=== PATIENT | male | born 1945 | race Caucasian/White ===

== ENCOUNTER 2025-04-04 19:58 | Inpatient (IN) | payer MEDICARE, OTHER, SELFPAY ==
[2025-04-04] VITALS (10 sets, daily range): BP systolic 149–175; BP diastolic 70–98; BMI 27.3; BMI 25.2
[2025-04-04 12:33] LABS: ALT (SGPT) 72 U/L (0-50); AST (SGOT) 58 U/L (17-59); Albumin 3.9 g/dl (3.5-5.0); Alkaline Phosphatase 85 U/L (38-126); Blood Urea Nitrogen 50 mg/dl (9-20); Calcium 8.8 mg/dl (8.4-10.2); Carbon Dioxide 13 mmol/L (22-30); Chloride 119 mmol/L (98-107); Glucose 69 mg/dl (70-99); Potassium 5.1 mmol/L (3.5-5.1); Sodium 142 mmol/L (135-145); Total Protein 6.6 g/dl (6.3-8.2); eGFR 31.82
[2025-04-04 12:34] LABS: Hematocrit 22.2 % (39.0-52.0); Hemoglobin 7.2 g/dL (13.0-18.0); Mean Corp Hgb Conc. 32.4 g/dL (33.0-37.0); Mean Corpuscular Volume 89.5 fL (80.0-94.0); Nucleated Red Blood Cells % 0 % (-); Red Cell Dist. Width 14.1 % (11.5-14.5)
[2025-04-04 13:18] LABS: Platelet Count 139 10^3/uL (130-400)
--- NOTE | 2025-04-04 17:17 | ED.GENMED ---
History of Present Illness
General
Chief Complaint: Swelling
Time Seen by Provider: 04/04/25 16:25
History of Present Illness
History of Present Illness:
79-year-old male with history of insulin-dependent diabetes, chronic renal failure, hypertension, and hyperlipidemia presents to the emergency department for evaluation of gradual worsening of edema particularly of the lower extremities extending to
over the abdomen. States that this been going on for approximately 6 months, he was admitted to [facility] in February but he is not aware of any of the findings from this. He does note that he was discharged from that hospital stay on
oral iron supplements which he continues to take. He reports exertional dyspnea and chest tightness. Denies any associated fevers or chills recently. Denies knowledge of any weight gain.
Past History
Past History
ED Past Medical History: GERD, HTN, Hypercholesterolemia, NIDDM and Other (Diverticulitis)
ED Past Surgical History: Bowel resection and Cholecystectomy
Social History
Tobacco: Non-smoker
Personal:
Review of Systems
Review of Systems
Allergies reviewed?: Yes
All Other Systems: ROS reviewed and negative except as documented in HPI and ROS
Phy Exam
Physical Exam
Physical Exam:
GEN: Well appearing, NAD, WDWN
Eyes: PERRLA, EOMs intact, no scleral icterus
HENT: NCAT, oral mucosa moist
Lungs: CTAB, no wheezes, rales, rhonchi, normal chest wall excursion
Cardiac: RRR, no M/R/G, no peripheral edema. Radial pulses 2+ bilat
Abdomen: S, NT, ND, NABS, no masses or hepatosplenomegaly
Neuro: AO x 3
MSK: No gross deformity or ecchymosis. Severe bilateral lower extremity edema left greater than right
Skin: No rashes, petechiae. Normal color, no pallor or jaundice.
Psych: Calm, cooperative, proper hygiene
Scores
Heart Failure Risk
Heart Failure Risk Score: Yes
History of Stroke or TIA: No
History of intubation for respiratory distress: No
Heart rate on ED arrival >/= 110: Yes
SaO2 <90% on arrival on room air: No
HR >/=110 during 3min walk test (or too ill to perform test): Yes
ECG has acute ischemic changes: Yes
Urea >/=12mmol/L (BUN 33.6mg/dL): Yes
Serum CO2>/=35mmol/L: No
Troponin I or T elevated to MN Level (0.4mg/dL): Yes
NT-proBNP >/=5,000ng/L (5,000pg/ml): Yes
HF Risk Score: 8
Admission Status: VERY HIGH RISK 81.2% Consider admission to hospital
Course
Orders/Labs/Results
Orders:
Orders
04/04/25 12:01
Complete Blood Count/With Diff Urgent
Comprehensive Metabolic Panel Urgent
04/04/25 17:15
Venous Doppler Lwr Ext Left [US Periph Venous LOWER Ext LT] Urgent
Comment:
Reason For Exam: LLE edema
04/04/25 17:16
Electrocardiogram (*1) Urgent
Reason for Study: Chest Pain
EKG- Treatment ONCE
CR Chest - 2 Views Urgent
Comment:
Reason For Exam: SOB
04/04/25 17:18
Type+Screen Urgent
BBK Wristband Number:
NT-proBNP Urgent
Troponin I Urgent
04/04/25 18:19
Blood Bank Products [* Blood Bank Products] Urgent
Blood Bank Products: *Packed RBC Leuko(PRBC's)
Quantity: 1
Transfuse Today: Yes
Reason: Anemia
Furosemide [Lasix] 40 mg IV ONCE ONE
Abnormal Lab Results
04/04/25 04/04/25
12:01 17:18
RBC 2.48 L 10^6/uL
(4.70-6.10)
Hgb 7.2 L g/dL
(13.0-18.0)
Hct 22.2 L %
(39.0-52.0)
MCHC 32.4 L g/dL
(33.0-37.0)
MPV 11.4 H fL
(7.4-10.4)
Absolute Lymphs (auto) 0.6 L 10^3/uL
(1.2-3.4)
Neutrophils % 80.9 H %
(42.2-75.2)
Lymphocytes % 9.4 L %
(20.5-51.1)
Chloride 119 H mmol/L
(98-107)
Carbon Dioxide 13 L* mmol/L
(22-30)
BUN 50 H mg/dl
(9-20)
Creatinine 2.1 H mg/dL
(0.7-1.3)
Glucose 69 L mg/dl
(70-99)
ALT 72 H U/L
(0-50)
Troponin I 0.041 H* ng/ml
04/04/25 12:01
04/04/25 12:01
Vital Signs
Initial and Last Documented VS:
Initial Vital Signs
Temp Pulse Resp BP Pulse Ox
97.4 F 86 16 165/74 99
04/04/25 11:48 04/04/25 11:48 04/04/25 11:48 04/04/25 11:48 04/04/25 11:48
Last Documented Vital Signs
Temp Pulse Resp BP Pulse Ox
97.4 F 114 17 175/72 99
04/04/25 11:48 04/04/25 17:53 04/04/25 17:53 04/04/25 17:52 04/04/25 17:53
MDM/Problems Addressed
MDM/Problems Addressed:
79-year-old male presents with leg swelling as well as dyspnea on exertion. He is found to be in acute onset CHF evidenced by massive diffuse edema/anasarca, pulmonary edema on chest x-ray, and elevated proBNP/troponin. Anemia is also identified
of uncertain chronicity, I was unable to receive records from [facility] regarding his recent discharge summary and the patient has no access to these records at this time. He is not on anticoagulants. He does take oral iron and
thus stool Hemoccult is not valid. Will admit for further evaluation and management.
Comment
Comment:
EKG independently interpreted by me shows normal sinus rhythm at a rate of [address]ressions
*Pulse Oximetry
SaO2: 99
Oxygen Mode of Delivery: Room air
Patient hypoxic: no
*Critical Care Note
Total Time (30-74mins, 75-104mins- exclusive of procedures): 40 minutes
comment:
Critical care time: 40-minute
Critical care time was exclusive of: Separately billable procedures, treating other patients, and teaching time
Critical care was necessary to treat or prevent imminent or life-threatening deterioration of the following conditions: Symptomatic anemia/CHF
Critical care time spent personally by me on the following activities:
[x] Review of old charts
[x] Obtaining history from patient or surrogate
[x] Ordering and review of the laboratory studies
[x] Ordering and review of radiographic studies
[x] Ordering and performing treatments and interventions
[x] Patient patient's response to treatment
[x] Development of treatment plan with patient or surrogate
ED Attending Note
-
Portions of this chart may have been created with voice recognition software.� Occasional wrong word or��sound alike� substitutions may have occurred due to the inherent limitations of voice recognition software.
Discharge Plan
Departure
Patient Disposition: Admit
Date of Disposition: 04/04/25
Time of Disposition: 18:20
Admit to: Telemetry
Presentation/result/management discussed w/ accepting MD/DO: Hospitalist
Discharge Problem:
Acute CHF, Cardiorenal syndrome, Symptomatic anemia
Prescriptions:
No Action
sertraline 100 mg Tablet
100 mg PO DAILY
tamsulosin [Flomax] 0.4 mg Capsule
0.4 mg PO HS
amlodipine [Norvasc] 10 mg Tablet
10 mg PO DAILY
pantoprazole [Protonix] 40 mg Tablet,Delayed Release (Dr/Ec)
40 mg PO DAILY
simvastatin [Zocor] 20 mg Tablet
20 mg PO QPM
hydralazine 50 mg Tablet
50 mg PO BID
gabapentin 100 mg Capsule
100 mg PO TID
finasteride 5 mg Tablet
5 mg PO DAILY
valsartan 160 mg Tablet
160 mg PO DAILY
Novolin R FlexPen 100 unit/mL (3 mL) Insulin Pen
10 sliding scale dose SC AC
metoprolol tartrate 25 mg Tablet
25 mg PO BID
insulin glargine [Lantus Solostar U-100 Insulin] 100 unit/mL (3 mL) Insulin Pen
30 unit SC HS
Referrals:
Bailey Arndt DO [Family Provider, Internal Medicine]
Interventions
Interventions:
*Risk Screen - Suicide Last Done: 04/04/25 18:00
*General Assessment Last Done: 04/04/25 18:00
*Neglect/Abuse Screening Last Done: 04/04/25 18:00
*ED- Fall Risk Assessment Last Done: 04/04/25 18:00
*ED COVID-19 Vaccine History Last Done: 04/04/25 18:00
ED- Pulmonary Assessment Last Done: 04/04/25 18:10
ED-Skin Assessment Last Done: 04/04/25 18:00
Discharge Date and Time
Print Language: GERMAN
[2025-04-04 17:59] LABS: Troponin I 0.041 ng/ml
--- NOTE | 2025-04-04 18:27 | HPS.HSE ---
Family Physician
-
Family Physician: Bailey Arndt, DO
Chief Complaint
-
Swelling bilateral legs up to buttocks
History of Present Illness
79-year-old male from his PCP office was sent to ER for evaluation of his progressive edema which started about 6 months ago to his feet but over the past month has progressed to the feet up bilateral legs to buttocks. He was seen by his PCP in the
office today who noted that he looked pale along with increased edema and referred him to the ER for evaluation. Patient states he had recent admission February 19 to at [facility] at that time he had uncontrolled hypertension he was placed on
4 blood pressure medications. 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 Patient reports shortness of breath with activity. He denies headache, blurred vision, chest pain, palpitations,
cough, abdominal pain, nausea, vomiting, diarrhea, urinary symptoms, black stools, hematuria.
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
Medical History
Past Medical History
Past Medical History: Reports Other
Additional Past Medical History:
hypertension
DM 2
neuropathy
cKd 3B
HLD
GERD,
diverticulitis status post colon resection
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
BPH
Past Surgical History: Reports Other
Additional Past Surgical History:
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
Social History
Tobacco: Non-smoker
Alcohol: None
Drug: None
Personal:
Living: With Family ( [place])
Employment: Retired
Family History
Family History: Not pertinent
Allergies / Home Medications
Allergies reflects when Allergies were last updated in [employer].
Home Medications with original date entered in [employer]
Allergy/Medication List:
Allergies
Allergy/AdvReac Type Severity Reaction Status Date / Time
iodine Allergy Hives Verified 04/04/25 11:48
Home Medications
amlodipine 10 mg tablet (Norvasc) 10 mg PO DAILY 04/04/25
finasteride 5 mg tablet 5 mg PO DAILY 04/04/25
gabapentin 100 mg capsule 100 mg PO TID 04/04/25
hydralazine 50 mg tablet 50 mg PO BID 04/04/25
insulin glargine 100 unit/mL (3 mL) subcutaneous pen (Lantus Solostar U-100 Insulin) 30 unit SC HS 04/04/25
insulin regular human 100 unit/mL (3 mL) subcutaneous pen (Novolin R FlexPen) 10 sliding scale dose SC AC 04/04/25
metoprolol tartrate 25 mg tablet 25 mg PO BID 04/04/25
pantoprazole 40 mg tablet,delayed release (Protonix) 40 mg PO DAILY 04/04/25
sertraline 100 mg tablet 100 mg PO DAILY 04/04/25
simvastatin 20 mg tablet (Zocor) 20 mg PO QPM 04/04/25
tamsulosin 0.4 mg capsule (Flomax) 0.4 mg PO HS 04/04/25
valsartan 160 mg tablet 160 mg PO DAILY 04/04/25
Review of Systems
-
History Source: Patient
A 12 point ROS was completed and negative except as noted: Yes
Constitutional: Reports Fatigue; Denies Fever or Chills
EENT: Denies Sore Throat or Runny Nose
Respiratory: Reports Trouble Breathing (BAKER); Denies Cough
Cardiac: Denies Chest Pain, Diaphoresis, Palpitations or Syncope
Abdomen/GI: Denies Abdominal Pain, Nausea, Vomiting, Diarrhea, Constipated or Bloody Stools
: Denies Dysuria, Frequency, Flank Pain or Incontinence
Musculoskeletal: Reports Edema (Feet to buttocks +2); Denies Joint Pain
Skin: Denies Itching or Rash
Neurological: Denies Dizzy, Headache or Weakness
Endocrine: Reports No Symptoms
Hematologic/Lymphatic: Reports No Symptoms
Psych: Reports Calm
Physical Exam
Vital Signs
Vital Signs
Temp Pulse Resp BP Pulse Ox
97.4 F 114 17 175/72 99
04/04/25 11:48 04/04/25 17:53 04/04/25 17:53 04/04/25 17:52 04/04/25 17:53
Physical Exam
General: Comfortable and Conversant; No Pain, Fever or Chills
HEENT: NormoCephalic, Moist mucous membranes, PERRLA, [place] Conjunctivae and No Ptosis
Respiratory: Clear; No Wheezes, Rales or Rhonchi
Cardiac: S1/S2, Regular Rhythm and Peripheral Edema (+2 feet to buttocks); No Murmur, Rub or Gallop
Breast: Deferred by me
GI: Soft, Non Tender, Non Distended, Normal Bowel Sounds and No Hepatosplenomegaly
Rectal: Deferred by Provider
Musculoskeletal: No Clubbing, No Cyanosis, Edema, Left Lower Extremity (+2 feet to buttocks) and Edema, Right Lower Extremity (+2 feet to buttocks); No Edema, Left Upper Extremity or Edema, Right Upper Extremity
Skin: Warm and Dry; No Rash or Jaundice
Neuro: AO x 3, No Motor Deficits, Nonfocal/grossly intact, Cranial Nerves Intact and No Sensory Deficits; No Slurred Speech, Facial Droop, Tremors or Sedated
Psych: Calm
Laboratory Results
-
04/04/25 12:01
04/04/25 12:01
Laboratory Results
Total Bilirubin 0.5 mg/dl (0.2-1.3) 04/04/25 12:01
AST 58 U/L (17-59) 04/04/25 12:01
ALT 72 U/L (0-50) H 04/04/25 12:01
Alkaline Phosphatase 85 U/L (38-126) 04/04/25 12:01
Troponin I 0.041 ng/ml H* 04/04/25 17:18
Impression/Plan
-
Impression/plan:
Admit to telemetry
#Acute CHF�nohx of
BNP 9580
I/O, daily weights
-IV Lasix given in ER
- Check 2D echo
- Consult CBC cardiology
#Symptomatic normocytic anemia/ possible dilutional also
#History of iron deficiency anemia
Hgb 7.2, MCV 89.5
Check iron panel, B12, folate
Type and screen
-Transfuse 1 unit PRBC with Lasix 20 units after [facility] through unit
-Iron 42, percent sat 10 will give Ferrlecit infusions starting tomorrow
#KODI on CKD 3B
#History of partial nephrectomy right sided 2007 due to right kidney mass
Creat 2.1/bun 50 prior baseline 1.3 in 2018
(Patient states his creatinine numbers have been elevated on recent admit February 19-)
Obtain medical records including labs from Dr. Garcia [facility] [phone]
-Consult nephro
#Acute hypoglycemia due to ckd and insulin
Blood sugar 69
-We will give D50 12.5 mg now, Accu-Cheks with SSI, check HgbA1c
Hold Lantus 30 units SQ at bedtime, NovoLog or 10 units with meals
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
Troponin 0.041, will trend
#HTN history uncontrolled
BP meds just prescribed February 19 to at [facility]
Continue hydralazine 50 mg p.o. twice daily, Toprol tartrate 25 mg p.o. twice daily with hold parameters,
HOLD valsartan 160 mg daily, amlodipine 10 mg daily
#HLD
Continue Zocor 20 mg every afternoon
#GERD
Continue Protonix 40 mg daily
Other PMH:
Diverticulitis status post colon resection
DVT prophylaxis
Subcu heparin
Full code
--- NOTE | 2025-04-04 18:33 | W.PN.UPDATE ---
Update Note
Progress Note Update
This note serves as an addendum to the H&P by rotating equipment specialist AGUSTÍN�
Samantha New
HPI�
79M HX CKD3b/4, ACDz , IDDMT2 , HTN, HLD seen at ER:
- evaluation of gradual worsening of edema particularly of the lower extremities extending to over the abdomen.
- for approximately 6 months
- he was admitted to [facility] in February but he is not aware of any of the findings from this.
- He does note that he was discharged from that hospital stay on oral iron supplements which he continues to take.
- He reports exertional dyspnea and chest tightness.
ROS
Denies any associated fevers or chills recently. Denies knowledge of any
Temp Pulse Resp BP Pulse Ox
97.4 F 114 17 175/72 99
04/04/25 11:48 04/04/25 17:53 04/04/25 17:53 04/04/25 17:52 04/04/25 17:53
PE
Gen: NAD, non toxic
HEENT: pale conjunctiva
Neck: Full EJD
Lungs: symmetric AE
Cor: RRR Loud HS suspect hyperdynamic circulation due to anemia
Abdomen:�soft benign
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
MS:b/l Elida pitting edema up to knees
Psych: Nl mood and afect
Relevant Data�
04/03/18 04/03/18 04/04/25
Hgb 13.3 7.2 L
MCV 89.5
Plt Count 139
Sodium 142
Chloride 119 H
Carbon Dioxide 13 L*
BUN 50 H
Creatinine 1.3 2.1 H
Glomerular Filtr Rate 54.6
eGFR 31.82
Troponin I 0.041
Prt-[id number] Pept 9580
07/03/10 TTE
1. Normal echocardiogram.
2. No prior study for comparison.
CXR
- Pulmonary vascularity at least top normal.
- Suspected small bilateral pleural effusions.
ASSESSMENT & PLAN
Cobb with b/l Elida edema
Symptomatic multifactorial origins hypervolemic state
DDX: decompensated CHF NOS + severe anemia + possible nephrotic syndrome + CKD3b/4 of diabetic nephropathy ?
- Significant microalbuminuria > 57 - eval for nephrotic syndrome - diabetic nephropathy ?
- IV diuresis
- Renal and Cardio consult
Acute CHF NOS DDX: Chr HFpEF +/_ High output HF due to anemia
- IV Lasix 40 daily
- ECHO in AM
- daily wt, IOs
- daily BMP
- CBC Card consulted
Anemia - severe, normocytic
Multifactorial : Dilutional element of current Hgb due to hypervolemia + Anemia of chronic dz +/_ acute component like GIB loss
- suspect underlying CKD
- HX Fe def anemia
- check stool for HoB
- pending Ferritin
- T & S and Blood consented and scanned
- agree with 1 unit of PRBCs - should give IV Lasix 20mg half way thru 1 unit of PRBC
Underlying CKD3b/4 per patient
NAG MA 10
severe hypocarbia
- hold Valsartan
- await Renal evaluation
Poorly controlled HTN suspect element of volume mediated plus MDR essential HTN
Essential HTN
- on BRUSHER amlodipine, Hydralazine and Metoprolol tart
Hypoglycemia due to lower GFR causing relatively prolonged half life of insulin
IrDMT2
- Hold Novolin R
- Hold Lantus
- ISS low
HLD
- controlled
- on Simvastatin + Fenofibrate
BPH
- Finasteride
- BRUSHER tamsulosin
DVT Px: SQH
Full code
IP TLM
[2025-04-04 18:46] LABS: Glucose - Point of Care 84 mg/dl (70-99)
[2025-04-04 18:51] LABS: Iron 42 ug/dl (49-181)
[2025-04-04 19:01] LABS: Total Iron Binding Capacity 391 ug/dl (261-462)
[2025-04-04 19:27] LABS: Ferritin 24.5 ng/ml (17.9-464.0)
[2025-04-04] MEDS: LASIX 40 MG IV (19:43)
[2025-04-04] MEDS: DEXTROSE 50% SYRINGE 12.5 GRAMS IV (19:43)
[2025-04-04 19:58] LABS: Folate 7.1 ng/ml (2.76-20); Vitamin B12 723 pg/ml (239-931)
--- NOTE | 2025-04-04 20:01 | PTCARENOTE ---
Pt aaox3, cooperative. 40 iv lasix given prior to PRBCs, report given to 4east RN to give additional 20 mg iv lasix detention through blood transfusion. vss. accucheck done.
[2025-04-04 20:03] LABS: Glucose - Point of Care 133 mg/dl (70-99)
[2025-04-04 21:29] LABS: Urine Character Clear (Clear)
[2025-04-04 21:38] LABS: Urine Squamous Cell 0-2 /LPF (Few)
[2025-04-04 21:39] LABS: Urine White Cell 0-2 /HPF (0-5)
[2025-04-04] MEDS: HEPARIN 5000 UNITS SC (22:24)
[2025-04-04] MEDS: LIPITOR 10 MG PO (22:26)
[2025-04-04] MEDS: LOPRESSOR 25 MG PO (22:26)
[2025-04-04] MEDS: APRESOLINE 50 MG PO (22:26)
[2025-04-04] MEDS: LASIX 20 MG IV (22:26)
[2025-04-04 23:29] LABS: Troponin I 0.051 ng/ml
[2025-04-05] VITALS (8 sets, daily range): BP systolic 135–172; BP diastolic 68–81; BMI 24.5
[2025-04-05 03:51] LABS: Glucose - Point of Care 128 mg/dl (70-99)
[2025-04-05 07:03] LABS: Glucose - Point of Care 131 mg/dl (70-99)
[2025-04-05] MEDS: NOVOLOG FLEXPEN-LOW RESISTANCE SC (07:17)
[2025-04-05] MEDS: APRESOLINE 50 MG PO ×2 (07:34→19:38)
[2025-04-05] MEDS: PROTONIX 40 MG PO (07:34)
[2025-04-05] MEDS: LOPRESSOR 25 MG PO (07:34)
[2025-04-05] MEDS: LASIX 40 MG IV ×2 (07:35→17:09)
[2025-04-05] MEDS: HEPARIN 5000 UNITS SC ×2 (07:35→21:06)
--- NOTE | 2025-04-05 07:46 | CON.CAR ---
Addendum entered and electronically signed by Tre Angel MD 04/05/25 11:45:
I saw and examined the patient.
The EPIDEMIOLOGY INTERN's note was reviewed and I agree with the note.
Comment:
79-year-old male with hypertension, hypertriglyceridemia, type 2 diabetes mellitus, CKD with prior partial right nephrectomy (2006), and incomplete right bundle branch block who presented with worsening edema. He reports that edema started a few
months ago and has been getting worse. Now up to his thighs and low back. Saw his PCP yesterday who recommended ER evaluation. He also reports he has had chest burning over the past few months which radiates to his jaw and left arm. Mostly
occurs at night when he gets up to go to the bathroom but can also occur during the day. Not always with exertion. Symptoms have been becoming more frequent. He has never had any kind of coronary evaluation or stress test.
Physical exam: RRR, no murmurs, faint bibasilar crackles, 3+ pitting lower extremity edema up to his hips
Labs notable for hemoglobin 7.2, creatinine 2.0, A1c 6.4, troponin 0.041 -> 0.073
TTE 04/05/2025: LVEF 50-55%, small area of hypokinesis in the apical inferior/inferoseptal wall, stage II DD, biatrial enlargement, mod TR with PASP 51 mmHg, pleural effusion
HFpEF: New diagnosis this admission. Lots of edema and unknown dry weight. Continue twice daily IV diuresis. Nephrology consulted. Will get their thoughts on SGLT2 inhibitor and MRA.
Chest discomfort: Could be an anginal equivalent. Once he is adequately diuresed, we should consider stress test inpatient versus outpatient.
Hypertension: Stop amlodipine to allow for GDMT. Switch metoprolol to carvedilol. Continue hydralazine.
Anemia: Workup per primary team.
Original Note:
Consultation
Consultation Request
Date/Time Consultation Requested: 04/04/2025 19:00
Date/Time Consultation Performed: 04/05/2025 07:45
Requesting Provider: ROSARIO Nuñez
Performing Provider: ROSARIO Mcgovern for Dr. Angel
Reason for Consultation: Acute heart failure
Medical History
-
Chief Complaint: Worsening edema
History of Present Illness:
Reed Duque is a 79-year-old male with hypertension, hypertriglyceridemia, type 2 diabetes mellitus, CKD with prior partial right nephrectomy (2006), diverticulitis status post colon resection, anemia of chronic disease, and incomplete right bundle
branch block who presented with worsening edema. He reports his feet were swollen when he went to [facility] last month. Since his admission and then discharged home his edema has spread up to his thighs. He denies shortness of breath, chest pain, and
dizziness. He appears volume overloaded on exam.
Past Medical History
Past Medical History: HTN, Hypercholesterolemia, IDDM, Renal Failure (CKD) and Other (iRBBB, anemia of chronic disease)
Past Surgical History: Bowel Resection (1987), Cholecystectomy and Urological (Right partial nephrectomy)
Social History
Tobacco: Non-Smoker
Alcohol: None
Personal:
Living: With Family
Employment: Retired
Family History
Family History: Reviewed & Not Pertinent
Allergies / Home Medications
Allergy/AdvReac Type Severity Reaction Status Date / Time
iodine Allergy Hives Verified 04/04/25 11:48
�Medication �Instructions �Recorded �Confirmed �Type
amlodipine 10 mg tablet (Norvasc) 10 mg PO DAILY 04/04/25 04/04/25 History
finasteride 5 mg tablet 5 mg PO DAILY 04/04/25 04/04/25 History
gabapentin 100 mg capsule 100 mg PO TID 04/04/25 04/04/25 History
hydralazine 50 mg tablet 50 mg PO BID 04/04/25 04/04/25 History
insulin glargine 100 unit/mL (3 30 unit SC HS 04/04/25 04/04/25 History
mL) subcutaneous pen (Lantus
Solostar U-100 Insulin)
insulin regular human 100 unit/mL 10 sliding scale dose SC AC 04/04/25 04/04/25 History
(3 mL) subcutaneous pen (Novolin R
FlexPen)
metoprolol tartrate 25 mg tablet 25 mg PO BID 04/04/25 04/04/25 History
pantoprazole 40 mg tablet,delayed 40 mg PO DAILY 04/04/25 04/04/25 History
release (Protonix)
sertraline 100 mg tablet 100 mg PO DAILY 04/04/25 04/04/25 History
simvastatin 20 mg tablet (Zocor) 20 mg PO QPM 04/04/25 04/04/25 History
tamsulosin 0.4 mg capsule (Flomax) 0.4 mg PO HS 04/04/25 04/04/25 History
valsartan 160 mg tablet 160 mg PO DAILY 04/04/25 04/04/25 History
Review of Systems
-
History Source: Patient
All other systems: Negative unless noted
Constitutional: Fatigue
EENT: No Symptoms
Respiratory: No Symptoms
Cardiac: No Symptoms
Abdomen/GI: No Symptoms
: No Symptoms
Musculoskeletal: Edema
Skin: No Symptoms
Neurological: No Symptoms
Endocrine: No Symptoms
Hematologic/Lymphatic: No Symptoms
Physical Exam
Vital Signs
Temp Pulse Resp BP Pulse Ox
98 F 78 18 148/77 98
04/05/25 03:17 04/05/25 07:34 04/05/25 03:17 04/05/25 07:34 04/05/25 03:17
Lab Results
Troponin I 0.051 ng/ml H* 04/04/25 22:50
Pmw-I-Flunhvnmhfe Pept 9580 pg/ml 04/04/25 17:18
Physical Exam
General: Well Developed, Well Nourished and No Apparent Distress
HEENT: Normocephalic, Anicteric and Moist Mucous Membranes
Respiratory: Crackles and Non Labored Respirations
Cardiac: S1/S2, Regular Rhythm and Peripheral Edema
Breast: Deferred by me
GI: Soft, Non Tender, Non Distended and Normal Bowel Sounds
Rectal: Deferred by Provider
Genito-urinary: No Costovertebral Tender
Musculoskeletal: No Clubbing, No Cyanosis and Edema
Skin: Warm and Dry
Neuro: Awake and Alert
Hematologic/Lymphatic: No Lymphadenopathy
Psych: Calm
Impression / Plan
-
I/P: 79M with hypertension, hypertriglyceridemia, type 2 diabetes mellitus, CKD with prior partial right nephrectomy (2006), diverticulitis status post colon resection, anemia of chronic disease, and incomplete right bundle branch block who
presented with worsening edema.
Outpatient Parking Regulation Enforcement Officer: None
Heart failure, type unknown- acute, NEW, severe requiring hospitalization
- Diuresis with intravenous furosemide, as directed by nephrology, this requires intensive monitoring
- He would benefit from compression, significant pitting edema up to abdomen
- Defer SGLT2i initiation by nephrology
- Update echocardiogram
- Trend daily weight, I/O, and BMP with diuresis
- Heart failure education
Abnormal troponin, likely nonischemic myocardial injury in the setting of acute heart failure
- Chest pain-free
- EKG does not demonstrate acute ischemia
CKD Stage III, with proteinuria
- s/p partial right nephrectomy in the setting of mass 2006
- Creatinine 2.4 at [facility] last month
- Diuresis in the setting of CKD requires intensive monitoring
Hypertension, multidrug
- Amlodipine stopped, metoprolol tartrate stopped, start carvedilol
- Continue valsartan and hydralazine
Metabolic acidosis
- Slowly improving, presented with CO2 of 13
Hypertriglyceridemia
- Fasting lipid panel pending, he may require direct LDL
- Triglycerides over 500 in the past with an A1c ~7%
- His fenofibrate was stopped in the past due to renal function
Type II DM, controlled, Hgba1c 6.4%
Anemia, likely of chronic disease, per primary service
Incomplete right bundle branch block, chronic, seen in 2006
SUBJECTIVE:
As above
DATA:
Transthoracic echocardiogram, 02/21/2025 ([facility]):
EF 55 to 60%. Grade 2 DD.
Severely dilated LA. Normal RV chamber size and systolic function.
Mild mitral regurgitation. Dilated IVC, unable to estimate PASP due to small regurgitant jet across the tricuspid valve.
Data Reviewed
-
EKG: Report Reviewed by me
Radiology: Report Reviewed by me
Medical Tests (Nuc Med, Echo etc): Report Reviewed by me
Labs: Labs Reviewed by me
Old Records: Reviewed
[2025-04-05 07:53] LABS: Hematocrit 25.2 % (39.0-52.0); Hemoglobin 8.2 g/dL (13.0-18.0); Mean Corp Hgb Conc. 32.5 g/dL (33.0-37.0); Mean Corpuscular Volume 89.7 fL (80.0-94.0); Nucleated Red Blood Cells % 0 % (-); Platelet Count 142 10^3/uL (130-400); Red Cell Dist. Width 13.9 % (11.5-14.5)
--- NOTE | 2025-04-05 07:53 | W.PN.HOSP.TC ---
Today's Communication/Plan
-
For Echo today, review with report, with cardiology and Nephrology
Assessment / Plan
Assessment / Plan
I/O,
aily weights 76.8, 68.748, 66.877
#Fluid retention, likely due to congestive cardiac failure
BNP- 9580
-IV Lasix given in ER
- Check echo
- Consult cardiology
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
Troponin 0.041, will trend
Consider Acute coronary syndrome
-Troponin I 0.041-0.051, 0.073...
-Lipids TGA- Elevated 409, N LDL- 67, VLDL 70
-Aspirin, Clopidogrel,
-Continue statin
-Echo today
#Symptomatic normocytic anemia/ possible dilutional also
#History of iron deficiency anemia, on iron tablet
-Hgb 7.2, Ht- 25.2, MCV 89.5 on presentation
-Has been transfused 1 unit
Check iron panel, B12, folate
Stool for blood (Hx of diverticulosis)
-Transfused 1 unit PRBC with Lasix 20 units yesterday 04/04
-Current Hb 8.2, Ht 25.2, MCV 89.7
-Iron 42 (>49), %Sat 10 (>10)
-B12-723, Folate- N7.1
-Ferrlecit infusions
#KODI on CKD 3B (per medical)
#History of partial nephrectomy right sided 2006 due to right kidney mass
-Creat 2.1/bun 50 prior baseline 1.3 in 2018
-BUN/Cr41/2.0
-Consult Nephrology
(Patient states his creatinine numbers have been elevated on recent admit February 19-)
Obtain medical records including labs from Dr. Garcia [facility] [phone]
-Consult nephro
Non- insulin dependent diabetic mellitus
-Blood sugar 69 on presentation, likely due to CKD + Insulin dose
-Current SB 131, HgbA1c 6.4
-Reduce Lantus 30 units SQ at bedtime,
-Hold NovoLog 10 units with meals
-Do Low resistance sliding scale
#HTN history uncontrolled
-Current Bp 160/77, 82b
- On Amlodipine 10mg, Hydralazine 50mg, Carvedilol 1.25mg, Valsartan 160
Check for secondary cause
Abdominal USS
BP meds just prescribed February 19 to at [facility]
#HLD
Continue Simvastatin
#GERD
Continue Protonix 40 mg daily
Fenofinbrate
Neutrophilia
ANC 82.3 (80.9)
Repeat cbc with diff
NAGMA
?? Low co
13
DVT prophylaxis
Subcu heparin
HLD
- on Simvastatin + Fenofibrate
DM 2, Neuropathy, cKd 3B
On Gabapentin
#GERD,
-Protonix
BPH
- Finasteride
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
DVT Prophylaxis
Heparin drip
Full code
Anticipated Discharge: > 48 hours
Subjective/Interval History
-
Date of Service: April 05, 2025
Patient seen.
A 79 year old man with progressively worsening Bilateral lower extremity edema.
Also gave complains of reduced activity tolerance occasional left sided chest pain characterized as burning and radiates to the neck and left arm, relieved by rest, unsure of precipitant
No cough, orthopnea, PND
Increased urination, diuresing
No complains this morning.
Objective Data
-
Labs:
Laboratory Results
04/05/25
06:08
WBC 5.9
Hgb 8.2 L
Hct 25.2 L
Plt Count 142
Sodium Pending
Potassium Pending
Chloride Pending
Carbon Dioxide Pending
BUN Pending
Creatinine Pending
Glucose Pending
Calcium Pending
Total Bilirubin Pending
AST Pending
ALT Pending
Alkaline Phosphatase Pending
Vital Signs:
Vital Signs
Temp Pulse Resp BP Pulse Ox
98 F 78 18 148/77 98
04/05/25 03:17 04/05/25 07:34 04/05/25 03:17 04/05/25 07:34 04/05/25 03:17
I&O
04/04/25 04/05/25 04/06/25
06:59 06:59 06:59
Intake Total 730 / 730
Output Total 2325 / 2325
Balance -1595 / -1595
Review of Systems
-
History Source: Patient
Constitutional: Reports No Symptoms
EENT: Reports Other (Has chronic rhinitis with mucous production)
Respiratory: Reports No Symptoms
Cardiac: Reports Chest Pain
Abdomen/GI: Reports No Symptoms
Genitourinary: Reports No Symptoms
Musculoskeletal: Reports Edema (Bilateral pitting edema + sacral edema)
Skin: Reports Other (Wound dressing on the right, abrasion from a fall)
Neuro: Reports No Symptoms
Physical Exam
-
General: Well Developed, Well Nourished, No Apparent Distress and Comfortable
HEENT: Normocephalic
Respiratory: Clear to Auscultation
Cardiac: Regular Rhythm and S1/S2
GI: Soft, Nontender and Other (Full)
Musculoskeletal: Edema, Right Lower Extrem, Edema, Left Lower Extrem and Other (Sacral pitting )
Skin: Warm and Dry
Neuro: Awake, Alert and Oriented
Psych: Calm
Data Reviewed
-
Labs: Labs Reviewed by me, Discussed with Physician and Discussed with Patient
[2025-04-05 08:32] LABS: ALT (SGPT) 66 U/L (0-50); AST (SGOT) 49 U/L (17-59); Albumin 3.7 g/dl (3.5-5.0); Alkaline Phosphatase 103 U/L (38-126); Blood Urea Nitrogen 41 mg/dl (9-20); Calcium 9.0 mg/dl (8.4-10.2); Carbon Dioxide 15 mmol/L (22-30); Chloride 116 mmol/L (98-107); Estimated Creatinine Clearance 27 ml/min; Glucose 122 mg/dl (70-99); HDL Cholesterol 48 mg/dl; LDL Cholesterol, Calculated 67 mg/dl; Magnesium 1.8 mg/dl (1.6-2.3); Potassium 4.6 mmol/L (3.5-5.1); Sodium 141 mmol/L (135-145); Total Protein 6.2 g/dl (6.3-8.2); Very Low Density Lipoprotein 30 mg/dl (0-30); eGFR 33.74
[2025-04-05 08:35] LABS: Troponin I 0.073 ng/ml
[2025-04-05] MEDS: COREG PO (08:40)
[2025-04-05 09:00] LABS: Glycohemoglobin (HgbA1c) 6.4 % (4.0-5.6)
[2025-04-05 11:56] LABS: Glucose - Point of Care 299 mg/dl (70-99)
[2025-04-05 12:56] LABS: Troponin I 0.054 ng/ml
[2025-04-05] MEDS: FERRLECIT 110 MG IV (12:56)
[2025-04-05] MEDS: NOVOLOG FLEXPEN-LOW RESISTANCE 3 UNITS SC ×2 (13:17→17:08)
--- NOTE | 2025-04-05 13:25 | W.CON.NEPH ---
Consultation
-
Date/Time Consultation Requested: April 04, 2025 at 8
Date/Time Consultation Performed: April 05, 2025 10 AM
Requesting Provider: Haim Starks
Performing Provider: Dr. Vela
Reason for Consultation: Acute kidney injury on chronic kidney disease
Medical History
-
Chief Complaint: KODI
History of Present Illness:
79-year-old male from his PCP office was sent to ER for evaluation of his progressive edema which started about 6 months ago to his feet but over the past month has progressed to the feet up bilateral legs to buttocks. He was seen by his PCP in the
office today who noted that he looked pale along with increased edema and referred him to the ER for evaluation. Patient states he had recent admission February 19 to at [facility] at that time he had uncontrolled hypertension he was placed on
4 blood pressure medications.
Renal consult for acute kidney injury versus chronic anasarca admission creatinine 2.1
Past Medical History
hypertension
DM 2
neuropathy
cKd 3B
HLD
GERD,
diverticulitis status post colon resection
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
BPH
Social History
Tobacco: Non-Smoker
Alcohol: None
Family History
Mother was on dialysis towards her end of life
Allergies / Home Medications
Allergy/AdvReac Type Severity Reaction Status Date / Time
iodine Allergy Hives Verified 04/04/25 11:48
�Medication �Instructions �Recorded �Confirmed �Type
amlodipine 10 mg tablet (Norvasc) 10 mg PO DAILY Blood Pressure 04/04/25 04/04/25 History
finasteride 5 mg tablet 5 mg PO DAILY Urinary Issue 04/04/25 04/04/25 History
gabapentin 100 mg capsule 100 mg PO TID Neurological 04/04/25 04/04/25 History
Condition
hydralazine 50 mg tablet 50 mg PO BID Blood Pressure 04/04/25 04/04/25 History
insulin glargine 100 unit/mL (3 30 unit SC HS Diabetes 04/04/25 04/04/25 History
mL) subcutaneous pen (Lantus
Solostar U-100 Insulin)
insulin regular human 100 unit/mL 10 sliding scale dose SC AC 04/04/25 04/04/25 History
(3 mL) subcutaneous pen (Novolin R Diabetes
FlexPen)
metoprolol tartrate 25 mg tablet 25 mg PO BID Blood Pressure 04/04/25 04/04/25 History
pantoprazole 40 mg tablet,delayed 40 mg PO DAILY Gastrointestinal 04/04/25 04/04/25 History
release (Protonix) Issue
sertraline 100 mg tablet 100 mg PO DAILY Depression 04/04/25 04/04/25 History
simvastatin 20 mg tablet (Zocor) 20 mg PO QPM High Cholesterol 04/04/25 04/04/25 History
tamsulosin 0.4 mg capsule (Flomax) 0.4 mg PO HS Urinary Issue 04/04/25 04/04/25 History
valsartan 160 mg tablet 160 mg PO DAILY Blood Pressure 04/04/25 04/04/25 History
Review of Systems
-
Edema no shortness of breath
All other systems: Negative unless noted
Physical Exam
Vital Signs
Vital Signs
Temp Pulse Resp BP Pulse Ox
97.6 F 85 16 160/75 97
04/05/25 11:00 04/05/25 11:00 04/05/25 11:00 04/05/25 11:00 04/05/25 11:00
Lab Results
WBC 5.9 10^3/uL (4.8-10.8) 04/05/25 06:08
RBC 2.81 10^6/uL (4.70-6.10) L 04/05/25 06:08
Hgb 8.2 g/dL (13.0-18.0) L 04/05/25 06:08
Hct 25.2 % (39.0-52.0) L 04/05/25 06:08
Plt Count 142 10^3/uL (130-400) 04/05/25 06:08
Sodium 141 mmol/L (135-145) 04/05/25 06:08
Potassium 4.6 mmol/L (3.5-5.1) 04/05/25 06:08
Chloride 116 mmol/L (98-107) H 04/05/25 06:08
Carbon Dioxide 15 mmol/L (22-30) L 04/05/25 06:08
BUN 41 mg/dl (9-20) H 04/05/25 06:08
Creatinine 2.0 mg/dL (0.7-1.3) H 04/05/25 06:08
eGFR 33.74 04/05/25 06:08
Glucose 122 mg/dl (70-99) H 04/05/25 06:08
Calcium 9.0 mg/dl (8.4-10.2) 04/05/25 06:08
Oqn-P-Ttxdjcaolph Pept 9580 pg/ml 04/04/25 17:18
Albumin 3.7 g/dl (3.5-5.0) 04/05/25 06:08
Physical Exam
General no acute distress
HEENT no cephalic atraumatic extraocular muscle intact no scleral icterus no JVD neck supple
lungs clear to auscultation bilateral
heart regular S1-S2 positive
abdomen soft nontender positive bowel sounds
extremities 2 edema pulses present bilateral
Neurologically nonfocal alert and oriented x 3
Skin no lesions no abrasions no petechiae
Psych normal affect no bizarre behavior
Data Reviewed
-
Radiology: Image Personally Visualized and interpreted
Labs: Labs Reviewed by me and Discussed with Patient
Assessment/Plan
-
79-year-old male from his PCP office was sent to ER for evaluation of his progressive edema which started about 6 months ago to his feet but over the past month has progressed to the feet up bilateral legs to buttocks. He was seen by his PCP in the
office today who noted that he looked pale along with increased edema and referred him to the ER for evaluation. Patient states he had recent admission February 19 to at [facility] at that time he had uncontrolled hypertension he was placed on
4 blood pressure medications.
Renal consult for acute versus chronic kidney disease and anasarca . admission creatinine 2.1
Impression
Acute versus chronic kidney disease baseline (per records creatinine 1.4 2017 )admitting creatinine 2.1
Proteinuria 3+
hypertension
Anemia
DM 2 25+ years no diabetic retinopathy
neuropathy
cKd 3B
HLD
GERD,
diverticulitis status post colon resection
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
BPH
Plan
3+ albumin will quantify likely diabetic nephropathy
Serum albumin normal 3.7
Okay with SGLT2 inhibitor going forward would hold initiating now
Continue angiotensin receptor ramiro
Echocardiogram-diastolic dysfunction mild decrease in EF
Anemia likely from CKD = check paraprotein
Continue diuretic Lasix 40 twice daily.
Daily weights
Blood pressure control= likely component of volume mediated
Need outpatient recent creatinine/records pending
Increase valsartan to 320 mg
Check renal ultrasound for level of chronicity
Will check serology although likely all diabetic nephropathy
[2025-04-05 16:46] LABS: Glucose - Point of Care 255 mg/dl (70-99)
--- NOTE | 2025-04-05 17:02 | CM ---
Alert awake oriented patient who lives with his Ifeoma who lives in a 1 story home with 3 step to enter.He is independent in driving and in all activities of daily living.He was offered VN he declined need.
No VN hx / No SNF history
Pharmacy [facility]
PCP DR Garcia
PLAN Home Declined VN
[2025-04-05] MEDS: LIPITOR 10 MG PO (17:05)
[2025-04-05] MEDS: COREG 12.5 MG PO (19:38)
[2025-04-05 21:13] LABS: Glucose - Point of Care 180 mg/dl (70-99)
[2025-04-06] VITALS (12 sets, daily range): BP systolic 123–157; BP diastolic 61–77; PULSE 79; BMI 23.9
--- NOTE | 2025-04-06 03:02 | DOWNTIME ---
There was a [employer] Client Camera Technician Downtime on 04/06/2025 from 0100 to 04/06/2025 at 0235. Downtime documentation of patient's care, including medication administrations, has been reconciled in the electronic record per guidelines. Refer to the
patient's paper chart under the miscellaneous tab to see printed paper medication records and downtime forms.
[2025-04-06 07:01] LABS: Glucose - Point of Care 179 mg/dl (70-99)
[2025-04-06 08:43] LABS: Hematocrit 23.8 % (39.0-52.0); Hemoglobin 7.9 g/dL (13.0-18.0); Mean Corp Hgb Conc. 33.2 g/dL (33.0-37.0); Mean Corpuscular Volume 86.9 fL (80.0-94.0); Nucleated Red Blood Cells % 0 % (-); Platelet Count 134 10^3/uL (130-400); Red Cell Dist. Width 14.1 % (11.5-14.5)
[2025-04-06] MEDS: NOVOLOG FLEXPEN-LOW RESISTANCE 1 UNITS SC (08:49)
--- NOTE | 2025-04-06 08:49 | W.PN.HOSP.TC ---
Today's Communication/Plan
-
Review of investigations and management
Assessment / Plan
Assessment / Plan
I/O,
aily weights 76.8, 68.748, 66.877, 65.062 (48.28) Dry weigth is 145 - 150 pounds
#Fluid retention, likely due to congestive cardiac failure
Total Pydthr=7418 ml
Total Uykejf=5895 ml
Balance=-2470 ml
-Now at dry weight, symptoms resolving
-IV Lasix 40mg bid, convert to once daily
- Check echo- preserved EF 50-55%
- SUMMARY
1. Normal left ventricular size with low-normal systolic function. LVEF 50-55%.
2. Small area of hypokinesis in the apical inferior/inferoseptal wall.
3. Stage II diastolic dysfunction suggestive of abnormal relaxation and increased filling pressures.
4. Biatrial enlargement.
5. Moderate tricuspid regurgitation with moderately elevated PASP (51 mmHg).
6. There is evidence of pleural effusion.
7. No prior study available for comparison.
-Carodiologist consult noted with thanks
#KODI on CKD 3B (per medical)
#Diabetic nephropathy
-BUN/Cr pending today
-Beehive Kiln Charcoal Burner consults noted with thanks
-Studies sent to confirm other cause of nephrotic syndrome, awaiting results
- Renal USS
IMPRESSION: Left kidney overall to slightly larger in size than the right kidney, similar to prior study.
No evidence of renal collecting system dilatation bilaterally.
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
-Troponin I 0.041-0.051, 0.073(peaked yesterday) 0.054.
-Lipids TGA- Elevated 409, N LDL- 67, VLDL 70
-Continue statin
-For inpatient Stress testing to R/O ACS
#Symptomatic normocytic anemia/ possible dilutional also
#History of iron deficiency anemia,
-Hgb 7.9, Ht- 23.8, MCV 86.9 on presentation
-Has been transfused 1 unit
Stool for blood (Hx of diverticulosis)
-Transfused 1 unit PRBC with Lasix 20 units yesterday 04/04
-Current Hb 8.2, Ht 25.2, MCV 89.7
-Iron 42 (>49), %Sat 10 (>10)
-B12-723, Folate- N7.1
-Ferrec infusions
Non- insulin dependent diabetic mellitus
-Blood sugar 69 on presentation, likely due to CKD + Insulin dose
-Current SB 131, HgbA1c 6.4
-Novolog and Lantus on hold
-Do Low resistance sliding scale
#HTN history uncontrolled
-Current Bp 160/77, 82b
- On Amlodipine 10mg, Hydralazine 50mg, Carvedilol 1.25mg, Valsartan 160
Check for secondary cause
Abdominal USS-
BP meds just prescribed February 19 to at [facility]
#HLD
Continue Simvastatin
#GERD
Continue Protonix 40 mg daily
Neutrophilia
ANC 82.3 (80.9)
Repeat cbc with diff
NAGMA
?? Low co
13
HLD
- on Simvastatin
DM 2, Neuropathy, cKd 3B
On Gabapentin
#GERD,
-Protonix
BPH
- Finasteride
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
DVT Prophylaxis
Heparin drip
Full code
Anticipated Discharge: Within 24 hours
Subjective/Interval History
-
Date of Service: April 06, 2025
No complains today
Swelling has gone down significantly
Objective Data
-
Labs:
Laboratory Results
04/06/25
08:30
WBC 4.7 L
Hgb 7.9 L
Hct 23.8 L
Plt Count 134
Sodium Pending
Potassium Pending
Chloride Pending
Carbon Dioxide Pending
BUN Pending
Creatinine Pending
Glucose Pending
Calcium Pending
Total Bilirubin Pending
AST Pending
ALT Pending
Alkaline Phosphatase Pending
Vital Signs:
Vital Signs
Temp Pulse Resp BP Pulse Ox
98 F 77 12 135/64 97
04/06/25 07:00 04/06/25 07:00 04/06/25 07:00 04/06/25 07:00 04/06/25 07:00
I&O
04/05/25 04/06/25 04/07/25
06:59 06:59 06:59
Intake Total 730 / 730 1080 / 1080
Output Total 2325 / 2325 3550 / 3550
Balance -1595 / -1595 -2470 / -2470
Review of Systems
-
History Source: Patient
Constitutional: Reports No Symptoms
Respiratory: Reports No Symptoms
Cardiac: Reports No Symptoms
Abdomen/GI: Reports No Symptoms
Genitourinary: Reports No Symptoms
Skin: Reports Other (Wound dressing on the right, abrasion from a fall)
Neuro: Reports No Symptoms
Physical Exam
-
General: Well Developed, Well Nourished, No Apparent Distress and Comfortable
HEENT: Normocephalic
Respiratory: Clear to Auscultation
Cardiac: Regular Rhythm and S1/S2
GI: Soft, Nontender and Other (Full)
Musculoskeletal: Edema, Right Lower Extrem (Trace) and Edema, Left Lower Extrem (1+)
Skin: Warm and Dry
Neuro: Awake, Alert and Oriented
Psych: Calm
Data Reviewed
-
Ultrasound: Report Reviewed by me, Discussed with Physician and Discussed with Patient
Medical Tests (Nuc Med, Echo etc): Report Reviewed by me, Discussed with Physician and Discussed with Patient
Labs: Labs Reviewed by me, Discussed with Physician and Discussed with Patient
[2025-04-06] MEDS: APRESOLINE 50 MG PO ×3 (08:52→21:18)
[2025-04-06] MEDS: PROTONIX 40 MG PO (08:53)
[2025-04-06] MEDS: HEPARIN 5000 UNITS SC ×2 (08:53→21:18)
[2025-04-06] MEDS: COREG 12.5 MG PO ×2 (08:53→21:18)
[2025-04-06] MEDS: DIOVAN 320 MG PO (08:53)
[2025-04-06] MEDS: LASIX 40 MG IV (08:54)
--- NOTE | 2025-04-06 09:58 | PTOTSP ---
Pt is independent with ambulation without need for any assistive device and is able to clilmb steps to enter the home. No acute PT needs were identified. PT will sign off now.
--- NOTE | 2025-04-06 10:15 | W.PN.CD ---
Today's Communication / Plan
-
Patient with improvement in edema. Continue with diuresis with close monitoring of renal function.
Hemoglobin 7.9. Additional treatment as directed by primary team and nephrology. Would be helpful to have additional treatment of hemoglobin to treat heart failure, shortness of breath and possible underlying CAD.
Eventual assessment for CAD. May start with noninvasive assessment considering the degree of renal insufficiency. Will continue to assess timing based on clinical course.
Patient with bilateral thigh discomfort with ambulation that sounds like claudication. Plan for arterial ultrasound
Impression / Plan
-
I/P: 79M with hypertension, hypertriglyceridemia, type 2 diabetes mellitus, CKD with prior partial right nephrectomy (2006), diverticulitis status post colon resection, anemia of chronic disease, and incomplete right bundle branch block who
presented with worsening edema.
Outpatient Technology Development Intern: None
Heart failure, type unknown- acute, NEW, severe requiring hospitalization
- Patient with worsening symptoms of shortness of breath over the course of weeks to months. Bilateral lower extremity edema
-Echocardiogram 04/05/2025 low normal left ventricular function with estimate ejection fraction 50 to 55% small area of apical inferior/inferoseptal wall. Moderate tricuspid regurgitation
- Diuresis with intravenous furosemide, as directed by nephrology, this requires intensive monitoring
- Continue diuresis with close monitoring of renal function and weights.
- Defer SGLT2i initiation by nephrology
- Trend daily weight, I/O, and BMP with diuresis
- Ultimately would plan for evaluation for obstructive coronary artery disease. Will continue to assess invasive versus noninvasive assessment. With question of wall motion abnormalities, heart failure and some intermittent chest pains over the
last 6 months would consider cardiac catheterization however I would not do a catheterization currently with creatinine 2.0, history of partial nephrectomy and significant anemia. Would plan for continued medical therapy and continued treatment of
heart failure we will assess the status of anemia and renal insufficiency as we determine appropriate testing.
.
Abnormal troponin, likely nonischemic myocardial injury in the setting of acute heart failure
-
CKD Stage III, with proteinuria
- s/p partial right nephrectomy in the setting of mass 2006
- Creatinine 2.4 at [facility] last month
- Diuresis in the setting of CKD requires intensive monitoring
.
Anemia. Hemoglobin 7.9. Multiple factors including CKD may contribute. Treatment as directed by primary team and nephrology
Hypertension, multidrug
- Amlodipine stopped, metoprolol tartrate stopped, carvedilol initiated this admission
- Continue valsartan and hydralazine
Metabolic acidosis
- Slowly improving, presented with CO2 of 13
.
Bilateral leg pain. Exertional sounds like claudication plan for lower extremity ultrasound
Hypertriglyceridemia
- Fasting lipid panel pending, he may require direct LDL
- Triglycerides over 500 in the past with an A1c ~7%
- His fenofibrate was stopped in the past due to renal function
Type II DM, controlled, Hgba1c 6.4%
Anemia, likely of chronic disease, per primary service
Incomplete right bundle branch block, chronic, seen in 2006
SUBJECTIVE:
As above
DATA:
Transthoracic echocardiogram, 02/21/2025 ([facility]):
EF 55 to 60%. Grade 2 DD.
Severely dilated LA. Normal RV chamber size and systolic function.
Mild mitral regurgitation. Dilated IVC, unable to estimate PASP due to small regurgitant jet across the tricuspid valve.
Physical Exam
Vital Signs/Labs
Vital Signs
Temp Pulse Resp BP Pulse Ox
98 F 82 12 165/78 97
04/06/25 07:00 04/06/25 08:52 04/06/25 07:00 04/06/25 08:52 04/06/25 07:00
04/05/25 04/06/25 04/07/25
06:59 06:59 06:59
Actual Weight 66.877 kg 65.062 kg
04/06/25 08:30
Magnesium 1.8 mg/dl (1.6-2.3) 04/05/25 06:08
Triglycerides 152 mg/dl (10-149) H 04/05/25 06:08
LDL Cholesterol, Calc 67 mg/dl 04/05/25 06:08
VLDL Cholesterol, Calc 30 mg/dl (0-30) 04/05/25 06:08
HDL Cholesterol 48 mg/dl 04/05/25 06:08
04/04/25
17:18
Kwv-F-Lockiwtkkvz Pept 9580
LAB Results
04/04/25 04/04/25 04/04/25
17:18 21:43 22:50
Troponin I 0.041 H* Cancelled 0.051 H*
04/05/25 04/05/25
06:08 12:10
Troponin I 0.073 H* D 0.054 H* D
Physical Exam
Constitutional: No acute distress
Cardiovascular: Rhythm & rate is regular
Respiratory: Wheeze Absent and Rhonchi Absent
GI: Soft and Non tender
Neuro/Psych: Alert
Other: Other (Bilateral lower extremity edema)
Data Reviewed
-
Date of Service: April 06, 2025
Medical Decision Making: Reviewed Test Results
Echo: Report Reviewed by me
Medical Tests (PFT, Pathology etc): Report Reviewed by me
Labs: Labs Reviewed by me
[2025-04-06 10:47] LABS: ALT (SGPT) 54 U/L (0-50); AST (SGOT) 32 U/L (17-59); Albumin 3.4 g/dl (3.5-5.0); Alkaline Phosphatase 94 U/L (38-126); Blood Urea Nitrogen 42 mg/dl (9-20); Calcium 9.2 mg/dl (8.4-10.2); Carbon Dioxide 20 mmol/L (22-30); Chloride 112 mmol/L (98-107); Estimated Creatinine Clearance 26 ml/min; Glucose 173 mg/dl (70-99); Potassium 4.8 mmol/L (3.5-5.1); Sodium 138 mmol/L (135-145); Total Protein 5.9 g/dl (6.3-8.2); eGFR 31.82
--- NOTE | 2025-04-06 11:53 | CM ---
Off floor for Ultrasound.
Continues with Cardiology and Lasix IV BID.
PT evals =no skilled needs.
will drive him home at dc.
PLAN Home no anticipated needs
--- NOTE | 2025-04-06 13:00 | PTCARENOTE ---
pt with c/o burning sensation in and around left antecubital IV site approx 20 mins into PRBC transfusion. VSS. Dr. Strickland and Dr. Saenz made aware. new IV placed in left forearm by VAT RN. physicians ok with continuing transfusion through new IV
site. will continue to monitor closely.
[2025-04-06 13:04] LABS: Glucose - Point of Care 275 mg/dl (70-99)
[2025-04-06] MEDS: NOVOLOG FLEXPEN-LOW RESISTANCE 3 UNITS SC (13:05)
[2025-04-06] MEDS: LASIX 20 MG IV ×2 (13:50→15:46)
--- NOTE | 2025-04-06 14:16 | W.PN.NEPH.PH ---
Today's Communication / Plan
-
Maintain IV Lasix
Check urine protein to creatinine ratio
Assessment/Plan
-
79-year-old male from his PCP office was sent to ER for evaluation of his progressive edema which started about 6 months ago to his feet but over the past month has progressed to the feet up bilateral legs to buttocks. He was seen by his PCP in the
office today who noted that he looked pale along with increased edema and referred him to the ER for evaluation. Patient states he had recent admission February 19 to at [facility] at that time he had uncontrolled hypertension he was placed on
4 blood pressure medications.
Renal consult for acute versus chronic kidney disease and anasarca . admission creatinine 2.1
Impression
Acute versus chronic kidney disease baseline (per records creatinine 1.4 2017 )admitting creatinine 2.1
Proteinuria 3+
hypertension
Anemia
DM 2 25+ years no diabetic retinopathy
neuropathy
cKd 3B
HLD
GERD,
diverticulitis status post colon resection
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
BPH
Plan
3+ albumin will quantify likely diabetic nephropathy,check urine protein to creatinine ratio
Creatinine stable at 2.1 and grossly nonoliguric ~3.5 liters
Serum albumin normal 3.7
Okay with SGLT2 inhibitor going forward would hold initiating now
Continue angiotensin receptor ramiro, amlodipine held in the setting of profound lower extremity edema, patient states he has been on amlodipine for years
Echocardiogram-diastolic dysfunction mild decrease in EF
Anemia likely from CKD = check paraprotein
Continue diuretic Lasix 40mg IV twice daily, in setting of suspected volume overload
Daily weights
Blood pressure control= likely component of volume mediated
Need outpatient recent creatinine/records pending
Increased valsartan to 320 mg on 04/06/25
Checked renal ultrasound for level of chronicity: Notable for symmetrical kidney sizes no evidence of hydronephrosis no significant loss of corticomedullary differentiation
Checked serology although likely all diabetic nephropathy
-
-
Date of Service: April 06, 2025
CC / HPI / ROS
-
Chief Complaint:
CKD
Edema
History of Present Illness:
Creatinine stable at 2.1
Continues with 40 mg IV twice daily of Lasix for congestive heart failure decompensation
Hemodynamically stable on escalated antihypertensives
Review of Systems:
Grossly nonoliguric
No fevers
No chest pain or shortness of breath
Labs
-
Labs:
WBC 4.7 10^3/uL (4.8-10.8) L 04/06/25 08:30
RBC 2.74 10^6/uL (4.70-6.10) L 04/06/25 08:30
Hgb 7.9 g/dL (13.0-18.0) L 04/06/25 08:30
Hct 23.8 % (39.0-52.0) L 04/06/25 08:30
Plt Count 134 10^3/uL (130-400) 04/06/25 08:30
Sodium 138 mmol/L (135-145) 04/06/25 08:30
Potassium 4.8 mmol/L (3.5-5.1) 04/06/25 08:30
Chloride 112 mmol/L (98-107) H 04/06/25 08:30
Carbon Dioxide 20 mmol/L (22-30) L 04/06/25 08:30
BUN 42 mg/dl (9-20) H 04/06/25 08:30
Creatinine 2.1 mg/dL (0.7-1.3) H 04/06/25 08:30
eGFR 31.82 04/06/25 08:30
Glucose 173 mg/dl (70-99) H 04/06/25 08:30
Calcium 9.2 mg/dl (8.4-10.2) 04/06/25 08:30
Ckw-R-Jlcujfcupba Pept 9580 pg/ml 04/04/25 17:18
Albumin 3.4 g/dl (3.5-5.0) L 04/06/25 08:30
Physical Exam
-
Vital Signs:
Vital Signs
Temp Pulse Resp BP Pulse Ox
98 F 73 16 153/66 97
04/06/25 13:53 04/06/25 13:53 04/06/25 13:53 04/06/25 13:53 04/06/25 13:53
Cardiovascular:: Regular rate and rhythm
Respiratory:: Bilateral: Coarse
Lung Excursion:: Normal
Abdomen:: Nontender and Soft
Bowel Sounds:: Normal
Extremity Edema:: +1: Bilateral:
Sloan Catheter: No
[2025-04-06] MEDS: FERRLECIT 110 MG IV (15:41)
[2025-04-06 16:32] LABS: Glucose - Point of Care 230 mg/dl (70-99)
[2025-04-06] MEDS: LIPITOR 10 MG PO (17:34)
[2025-04-06] MEDS: NOVOLOG FLEXPEN-LOW RESISTANCE 2 UNITS SC (17:35)
[2025-04-06 21:29] LABS: Glucose - Point of Care 252 mg/dl (70-99)
[2025-04-07 03:11] VITALS: BP 157/70
[2025-04-07 06:00] VITALS: BMI 23.4
[2025-04-07 07:15] VITALS: BP 157/69
[2025-04-07 07:28] LABS: Hematocrit 25.0 % (39.0-52.0); Hemoglobin 8.3 g/dL (13.0-18.0); Mean Corp Hgb Conc. 33.2 g/dL (33.0-37.0); Mean Corpuscular Volume 86.5 fL (80.0-94.0); Nucleated Red Blood Cells % 0 % (-); Platelet Count 137 10^3/uL (130-400); Red Cell Dist. Width 14.2 % (11.5-14.5)
--- NOTE | 2025-04-07 07:38 | W.PN.HOSP.TC ---
Today's Communication/Plan
-
Review of investigation result and treatment plan
Assessment / Plan
Assessment / Plan
aily weights 76.8, 68.748, 66.877, 65.062, 63.758 (140pounds) Dry weight is 145 - 150 pounds
#Fluid retention
Total Wzjyzw=5427 /� ml
Total Sumvat=1758� ml
Balance=-1460 ml
-Now at dry weight, symptoms resolving
-Still on IV Lasix 40mg twice daily
- Check echo- preserved EF 50-55%
# Leg swelling and pain
. Right lower extremity: Calcified vessel richards noted, but there are multiphasic waveforms from common femoral through popliteal artery with no velocity elevation to suggest any significant stenosis. Continuous Doppler waveforms at the dorsalis
pedis and posterior tibial arteries are monophasic, suggestive of infrapopliteal artery disease.
2. Left lower extremity: Calcified vessel richards noted. Multiphasic waveforms from common femoral through popliteal artery with moderate atherosclerotic plaque and mild velocity elevations in the distal superficial femoral and popliteal arteries. The
velocity ratios are suggestive of less than 50% stenosis. Continuous Doppler waveforms at the dorsalis pedis and posterior tibial arteries are monophasic, suggestive of infrapopliteal artery disease.
-PT/OT Graded exersice
#CKD 3B
Last test done in February.4 ([facility])
#Diabetic nephropathy
-BUN/Cr 40/ stable state
-Awaiting other pending renal studies
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
-Troponin I 0.041-0.051, peaked at 0.073, 0.054.
-Lipids TGA- Elevated 409, N LDL- 67, VLDL 70
-Continue statin
#ACS PREVENTION
-Aspirin 81mg po daily
#Symptomatic normocytic anemia/ possible dilutional also
#History of iron deficiency anemia,
-Hgb 8.3, Ht- 25, MCV 86.9 on presentation
-Has been transfused 1 unit
Stool for blood (Hx of diverticulosis)
-Transfused 1 unit PRBC with Lasix 20 units yesterday 04/04
-Current Hb 8.2, Ht 25.2, MCV 89.7
-Iron 42 (>49), %Sat 10 (>10)
-B12-723, Folate- N7.1
-Ferrec infusions
Non- insulin dependent diabetic mellitus
-Blood sugar 69 on presentation, likely due to CKD + Insulin dose
-Current SB 131, HgbA1c 6.4
-Novolog and Lantus on hold
-Do Low resistance sliding scale
#HTN history uncontrolled
-Current Bp 160/77, 82b
- Now on Amlodipine 10mg, Hydralazine 50mg, Carvedilol 1.25mg, Valsartan 320
Renal USS- Unchaged/
#HLD
Continue Simvastatin
#GERD
Continue Protonix 40 mg daily
Neutrophilia
ANC 72.1- Improved
NAGMA
CO- 20 (Improved
HLD
- on Simvastatin
DM 2, Neuropathy, cKd 3B
On Gabapentin
#GERD,
-Protonix
BPH
- Finasteride
- DELIVERY ENGINEER tamsulosin
DVT Prophylaxis
Heparin drip
Full code
Anticipated Discharge: Within 24 hours
Subjective/Interval History
-
Date of Service: April 07, 2025
No complains,
Swelling reduced
Still has pain in thighs
Objective Data
-
Labs:
Laboratory Results
04/07/25
06:22
WBC 4.7 L
Hgb 8.3 L
Hct 25.0 L
Plt Count 137
Sodium Pending
Potassium Pending
Chloride Pending
Carbon Dioxide Pending
BUN Pending
Creatinine Pending
Glucose Pending
Calcium Pending
Total Bilirubin Pending
AST Pending
ALT Pending
Alkaline Phosphatase Pending
Vital Signs:
Vital Signs
Temp Pulse Resp BP Pulse Ox
98.2 F 70 18 157/70 97
04/07/25 03:11 04/07/25 03:11 04/07/25 03:11 04/07/25 03:11 04/07/25 03:11
I&O
04/06/25 04/07/25 04/08/25
06:59 06:59 06:59
Intake Total 1080 / 1080 1630 / 1630
Output Total 3550 / 3550 3090 / 3090
Balance -2470 / -2470 -1460 / -1460
Review of Systems
-
History Source: Patient
Constitutional: Reports No Symptoms
Respiratory: Reports No Symptoms
Cardiac: Reports No Symptoms
Abdomen/GI: Reports No Symptoms
Genitourinary: Reports No Symptoms
Skin: Reports Other (Wound dressing on the right, abrasion from a fall)
Neuro: Reports No Symptoms
Physical Exam
-
General: Well Developed, Well Nourished, No Apparent Distress and Comfortable
HEENT: Normocephalic
Respiratory: Clear to Auscultation
Cardiac: Regular Rhythm and S1/S2
GI: Soft, Nontender and Other (Full)
Musculoskeletal: Edema, Right Lower Extrem (Trace at dorsal foot) and Edema, Left Lower Extrem (Trace at tibia)
Skin: Warm and Dry
Neuro: Awake, Alert and Oriented
Psych: Calm
Data Reviewed
-
Ultrasound: Report Reviewed by me, Discussed with Physician and Discussed with Patient
Labs: Labs Reviewed by me, Discussed with Physician and Discussed with Patient
[2025-04-07 07:47] LABS: Glucose - Point of Care 168 mg/dl (70-99)
[2025-04-07] MEDS: HEPARIN 5000 UNITS SC ×2 (08:57→19:32)
[2025-04-07] MEDS: DIOVAN 320 MG PO (09:04)
[2025-04-07] MEDS: COREG 12.5 MG PO ×2 (09:05→19:32)
[2025-04-07] MEDS: LASIX 40 MG IV (09:05)
[2025-04-07] MEDS: APRESOLINE 50 MG PO ×3 (09:05→20:59)
[2025-04-07] MEDS: NOVOLOG FLEXPEN-LOW RESISTANCE 1 UNITS SC ×2 (09:08→17:22)
[2025-04-07 09:12] LABS: ALT (SGPT) 47 U/L (0-50); AST (SGOT) 32 U/L (17-59); Albumin 3.4 g/dl (3.5-5.0); Alkaline Phosphatase 85 U/L (38-126); Blood Urea Nitrogen 40 mg/dl (9-20); Calcium 8.4 mg/dl (8.4-10.2); Carbon Dioxide 20 mmol/L (22-30); Chloride 111 mmol/L (98-107); Estimated Creatinine Clearance 27 ml/min; Glucose 181 mg/dl (70-99); Potassium 4.2 mmol/L (3.5-5.1); Sodium 138 mmol/L (135-145); Total Protein 5.8 g/dl (6.3-8.2); eGFR 33.74
[2025-04-07] MEDS: PROTONIX 40 MG PO (09:17)
[2025-04-07 11:05] VITALS: BP 144/56
--- NOTE | 2025-04-07 11:08 | W.PN.NEPH.PH ---
Today's Communication / Plan
-
Change Lasix to p.o. 80mg daily
Follow up serologies
Assessment/Plan
-
79-year-old male from his PCP office was sent to ER for evaluation of his progressive edema which started about 6 months ago to his feet but over the past month has progressed to the feet up bilateral legs to buttocks. He was seen by his PCP in the
office today who noted that he looked pale along with increased edema and referred him to the ER for evaluation. Patient states he had recent admission February 19 to at [facility] at that time he had uncontrolled hypertension he was placed on
4 blood pressure medications.
Renal consult for acute versus chronic kidney disease and anasarca . admission creatinine 2.1
Impression
Acute versus chronic kidney disease baseline (per records creatinine 1.4 2017 )admitting creatinine 2.1
Proteinuria 3+
hypertension
Anemia
DM 2 25+ years no diabetic retinopathy
neuropathy
cKd 3B
HLD
GERD,
diverticulitis status post colon resection
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
BPH
Plan
3+ albumin will quantify likely diabetic nephropathy,checked urine protein to creatinine ratio: 10 grams
10 g of proteinuria likely explains lower extremity edema
I will transition him to oral diuretics today 80mg daily
Case discussed with cardiology this morning who will do an ischemic limited ischemic workup with a Lexiscan
Creatinine stable at 2.0 and grossly nonoliguric ~3.
Serum albumin normal 3.7
Continue angiotensin receptor ramiro, amlodipine held in the setting of profound lower extremity edema, patient states he has been on amlodipine for years
Echocardiogram-diastolic dysfunction mild decrease in EF
Anemia likely from CKD = check paraprotein
Daily weights
Blood pressure control= likely component of volume mediated
Need outpatient recent creatinine/records pending
Increased valsartan to 320 mg on 04/06/25
Checked renal ultrasound for level of chronicity: Notable for symmetrical kidney sizes no evidence of hydronephrosis no significant loss of corticomedullary differentiation
Checked serology although likely all diabetic nephropathy, check [id number]
-
-
Date of Service: April 07, 2025
CC / HPI / ROS
-
Chief Complaint:
CKD
Edema
History of Present Illness:
Creatinine stable at 2
0 mg IV twice daily of Lasix for congestive heart failure decompensation
Hemodynamically stable on escalated antihypertensives
Review of Systems:
Grossly nonoliguric
No fevers
No chest pain or shortness of breath
weights down
Labs
-
Labs:
WBC 4.7 10^3/uL (4.8-10.8) L 04/07/25 06:22
RBC 2.89 10^6/uL (4.70-6.10) L 04/07/25 06:22
Hgb 8.3 g/dL (13.0-18.0) L 04/07/25 06:22
Hct 25.0 % (39.0-52.0) L 04/07/25 06:22
Plt Count 137 10^3/uL (130-400) 04/07/25 06:22
Sodium 138 mmol/L (135-145) 04/07/25 08:18
Potassium 4.2 mmol/L (3.5-5.1) 04/07/25 08:18
Chloride 111 mmol/L (98-107) H 04/07/25 08:18
Carbon Dioxide 20 mmol/L (22-30) L 04/07/25 08:18
BUN 40 mg/dl (9-20) H 04/07/25 08:18
Creatinine 2.0 mg/dL (0.7-1.3) H 04/07/25 08:18
eGFR 33.74 04/07/25 08:18
Glucose 181 mg/dl (70-99) H 04/07/25 08:18
Calcium 8.4 mg/dl (8.4-10.2) 04/07/25 08:18
Cng-Q-Zrapjkbmkkr Pept 9580 pg/ml 04/04/25 17:18
Albumin 3.4 g/dl (3.5-5.0) L 04/07/25 08:18
Physical Exam
-
Vital Signs:
Vital Signs
Temp Pulse Resp BP Pulse Ox
97.8 F 70 16 157/69 100
04/07/25 07:15 04/07/25 09:05 04/07/25 07:15 04/07/25 09:05 04/07/25 07:15
Cardiovascular:: Regular rate and rhythm
Respiratory:: Bilateral: CTA
Lung Excursion:: Normal
Abdomen:: Nontender and Soft
Bowel Sounds:: Normal
Extremity Edema:: +1: Bilateral:
Sloan Catheter: No
[2025-04-07 11:47] LABS: Glucose - Point of Care 294 mg/dl (70-99)
[2025-04-07] MEDS: NOVOLOG FLEXPEN-LOW RESISTANCE 3 UNITS SC (12:44)
[2025-04-07] MEDS: LOW STRENGTH ASPIRIN 81 MG PO (12:44)
[2025-04-07] MEDS: FERRLECIT 110 MG IV (14:12)
--- NOTE | 2025-04-07 14:22 | W.PN.CD ---
Today's Communication / Plan
-
Respiratory status has improved. Comfortable on room air. Edema has improved diuretic adjustment to oral diuretic as directed by nephrology.
Plan for Lexiscan nuclear perfusion stress test tomorrow to further assess for obstructive coronary disease
Impression / Plan
-
I/P: 79M with hypertension, hypertriglyceridemia, type 2 diabetes mellitus, CKD with prior partial right nephrectomy (2006), diverticulitis status post colon resection, anemia of chronic disease, and incomplete right bundle branch block who
presented with worsening edema.
Outpatient Job Specification Writer: None
Heart failure, HFpEF acute, NEW, severe requiring hospitalization
- Patient with worsening symptoms of shortness of breath over the course of weeks to months. Bilateral lower extremity edema
-Echocardiogram 04/05/2025 low normal left ventricular function with estimate ejection fraction 50 to 55% small area of apical inferior/inferoseptal wall. Moderate tricuspid regurgitation
- Patient with CKD and nephrotic range proteinuria which is a significant contributing factor to his volume issues.
- Diuresis with intravenous furosemide, this admission now converted to oral under the direction of nephrologys
- Patient's clinical status has improved since admission. Shortness of breath has improved. Considering patient's ongoing assessment for renal insufficiency and nephrotic range proteinuria with creatinine of 2.0 we will hold off on cath and
proceed with Lexiscan.
.
Abnormal troponin, likely nonischemic myocardial injury in the setting of acute heart failure
-
CKD Stage III, with proteinuria
- s/p partial right nephrectomy in the setting of mass 2006
- Creatinine 2.4 at [facility] last month
- Diuresis in the setting of CKD requires intensive monitoring
.
Anemia. 8.3. Multiple factors including CKD may contribute. Treatment as directed by primary team and nephrology. Reviewed with nephrology who is doing additional testing and assessing need for EPO
Hypertension, multidrug
- Amlodipine stopped, metoprolol tartrate stopped, carvedilol initiated this admission
- Continue valsartan and hydralazine
.
Bilateral leg pain. Exertional sounds like claudication. Ultrasound this admission shows some infrapopliteal disease.
Hypertriglyceridemia
- Triglycerides over 500 in the past with an A1c ~7%
- His fenofibrate was stopped in the past due to renal function
Type II DM, controlled, Hgba1c 6.4%
Anemia, likely of chronic disease, per primary service
Incomplete right bundle branch block, chronic, seen in 2006
SUBJECTIVE:
As above
DATA:
Transthoracic echocardiogram, 02/21/2025 ([facility]):
EF 55 to 60%. Grade 2 DD.
Severely dilated LA. Normal RV chamber size and systolic function.
Mild mitral regurgitation. Dilated IVC, unable to estimate PASP due to small regurgitant jet across the tricuspid valve.
Physical Exam
Vital Signs/Labs
Vital Signs
Temp Pulse Resp BP Pulse Ox
97.5 F 76 16 144/56 98
04/07/25 11:05 04/07/25 11:05 04/07/25 11:05 04/07/25 11:05 04/07/25 11:05
04/06/25 04/07/25 04/08/25
06:59 06:59 06:59
Actual Weight 65.062 kg 63.758 kg
04/07/25 06:22
04/07/25 08:18
Magnesium 1.8 mg/dl (1.6-2.3) 04/05/25 06:08
Triglycerides 152 mg/dl (10-149) H 04/05/25 06:08
LDL Cholesterol, Calc 67 mg/dl 04/05/25 06:08
VLDL Cholesterol, Calc 30 mg/dl (0-30) 04/05/25 06:08
HDL Cholesterol 48 mg/dl 04/05/25 06:08
04/04/25
17:18
Wfa-N-Dsptlyjogsx Pept 9580
LAB Results
04/04/25 04/04/25 04/04/25
17:18 21:43 22:50
Troponin I 0.041 H* Cancelled 0.051 H*
04/05/25 04/05/25
06:08 12:10
Troponin I 0.073 H* D 0.054 H* D
Physical Exam
Constitutional: No acute distress
Cardiovascular: Rhythm & rate is regular
Respiratory: Wheeze Absent and Rhonchi Absent
GI: Soft and Non tender
Neuro/Psych: Alert
Data Reviewed
-
Date of Service: April 07, 2025
Medical Decision Making: Reviewed Test Results
X-Ray/CT/US/MRI/NUC/PET: Report Reviewed by me
Medical Tests (PFT, Pathology etc): Report Reviewed by me
Labs: Labs Reviewed by me
[2025-04-07 15:10] VITALS: BP 152/68
[2025-04-07 17:13] LABS: Glucose - Point of Care 168 mg/dl (70-99)
[2025-04-07] MEDS: LIPITOR 10 MG PO (17:22)
[2025-04-07 19:28] VITALS: BP 167/74
[2025-04-07 21:06] LABS: Glucose - Point of Care 243 mg/dl (70-99)
[2025-04-07 23:37] VITALS: BP 158/69
[2025-04-08 01:02] LABS: ANA, IgG Reflex to HEp-2 None Detected (None Detected)
[2025-04-08 03:46] VITALS: BP 155/56
[2025-04-08 06:00] VITALS: BMI 23.2
[2025-04-08 06:33] LABS: Glucose - Point of Care 207 mg/dl (70-99)
[2025-04-08 07:12] LABS: Glucose - Point of Care 207 mg/dl (70-99)
[2025-04-08 07:20] VITALS: BP 165/75
--- NOTE | 2025-04-08 07:23 | W.PN.HOSP.TC ---
Today's Communication/Plan
-
Current diagnosis and pending investigation
Assessment / Plan
Assessment / Plan
Daily weights 76.8, 68.748, 66.877, 65.062, 63.758, 63.191 (140pounds) Dry weight is 145 - 150 pounds
#Fluid retention
Total Intake= 960/ �1850 ml
Total Output= 1850 ml
Balance=--890 ml
-Now at dry weight, symptoms resolving
-Still on IV Lasix 40mg twice daily
- Check echo- preserved EF 50-55%
# Leg swelling and pain
. Right lower extremity: Calcified vessel richards noted, but there are multiphasic waveforms from common femoral through popliteal artery with no velocity elevation to suggest any significant stenosis. Continuous Doppler waveforms at the dorsalis
pedis and posterior tibial arteries are monophasic, suggestive of infrapopliteal artery disease.
2. Left lower extremity: Calcified vessel richards noted. Multiphasic waveforms from common femoral through popliteal artery with moderate atherosclerotic plaque and mild velocity elevations in the distal superficial femoral and popliteal arteries. The
velocity ratios are suggestive of less than 50% stenosis. Continuous Doppler waveforms at the dorsalis pedis and posterior tibial arteries are monophasic, suggestive of infrapopliteal artery disease.
-PT/OT Graded exersice
#CKD 3B
Last test done in February, BUN/Cr 41/2.4 ([facility])
#Diabetic nephropathy
-BUN/Cr 42/2.3 stable state
-PARDEEP Neg
-Awaiting other pending renal studies
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
-Troponin I 0.041-0.051, peaked at 0.073, 0.054.
-Lipids TGA- Elevated 409, N LDL- 67, VLDL 70
-Continue statin
-Had ETT done today
-Cardiology signed off
#ACS PREVENTION
-Aspirin 81mg po daily
#Symptomatic normocytic anemia/ possible dilutional also
#History of iron deficiency anemia,
-Hgb 8.6, Ht- 25.4, MCV 86.9 on presentation
-Has been transfused 2 unit
Stool for blood (Hx of diverticulosis)
-Transfused 1 unit PRBC with Lasix 20 units yesterday 04/04
-Current Hb 8.2, Ht 25.2, MCV 89.7
-Iron 42 (>49), %Sat 10 (>10)
-B12-723, Folate- N7.1
-Ferrec infusions
Non- insulin dependent diabetic mellitus
-Blood sugar 69 on presentation, likely due to CKD + Insulin dose
-Current SB 131, HgbA1c 6.4
-Novolog and Lantus on hold
-Do Low resistance sliding scale
#HTN history uncontrolled
-Current Bp 160/77, 82b
-Now on, Hydralazine 50mg, Carvedilol 1.25mg, Valsartan 320
Renal USS- Unchaged/
#HLD
Continue Simvastatin
#GERD
Continue Protonix 40 mg daily
Neutrophilia
ANC 72.1- Improved
NAGMA
CO- 20 (Improved
HLD
- on Simvastatin
DM 2, Neuropathy, cKd 3B
On Gabapentin
#GERD,
-Protonix
BPH
- Finasteride
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
DVT Prophylaxis
Heparin drip
Full code
Anticipated Discharge: > 48 hours
Subjective/Interval History
-
Date of Service: April 08, 2025
A
Objective Data
-
Labs:
Laboratory Results
04/08/25
06:27
WBC Pending
Hgb Pending
Hct Pending
Plt Count Pending
Sodium Pending
Potassium Pending
Chloride Pending
Carbon Dioxide Pending
BUN Pending
Creatinine Pending
Glucose Pending
Calcium Pending
Total Bilirubin Pending
AST Pending
ALT Pending
Alkaline Phosphatase Pending
Vital Signs:
Vital Signs
Temp Pulse Resp BP Pulse Ox
98.4 F 78 18 155/56 98
04/08/25 03:46 04/08/25 03:46 04/08/25 03:46 04/08/25 03:46 04/08/25 03:46
I&O
04/07/25 04/08/25 04/09/25
06:59 06:59 06:59
Intake Total 1630 / 1630 960 / 960
Output Total 3090 / 3090 1850 / 1850
Balance -1460 / -1460 -890 / -890
Physical Exam
-
General: Well Developed, Well Nourished, No Apparent Distress and Comfortable
HEENT: Normocephalic
Respiratory: Clear to Auscultation
Cardiac: Regular Rhythm and S1/S2
GI: Soft, Nontender and Other (Full)
Musculoskeletal: Edema, Right Lower Extrem (1+ Edema at the foot) and Edema, Left Lower Extrem (Trace at ankle dorsum of foot)
Skin: Warm and Dry
Neuro: Awake, Alert and Oriented
Psych: Calm
Data Reviewed
-
Labs: Labs Reviewed by me and Discussed with Patient
[2025-04-08 07:31] LABS: Hematocrit 25.4 % (39.0-52.0); Hemoglobin 8.6 g/dL (13.0-18.0); Mean Corp Hgb Conc. 33.9 g/dL (33.0-37.0); Mean Corpuscular Volume 87.0 fL (80.0-94.0); Nucleated Red Blood Cells % 0 % (-); Platelet Count 127 10^3/uL (130-400); Red Cell Dist. Width 13.9 % (11.5-14.5)
[2025-04-08 08:00] LABS: ALT (SGPT) 46 U/L (0-50); AST (SGOT) 38 U/L (17-59); Albumin 3.2 g/dl (3.5-5.0); Alkaline Phosphatase 83 U/L (38-126); Blood Urea Nitrogen 42 mg/dl (9-20); Calcium 8.3 mg/dl (8.4-10.2); Carbon Dioxide 20 mmol/L (22-30); Chloride 112 mmol/L (98-107); Estimated Creatinine Clearance 23 ml/min; Glucose 196 mg/dl (70-99); Potassium 4.2 mmol/L (3.5-5.1); Sodium 138 mmol/L (135-145); Total Protein 5.5 g/dl (6.3-8.2); eGFR 28.53
[2025-04-08] MEDS: LEXISCAN 0.4 MG IV (09:07)
--- NOTE | 2025-04-08 09:52 | CM ---
Addendum entered by Yoly Mann RN 04/08/25 11:46:
IMM signed on chart.
Original Note:
For stress test today.
Cardiology changed Lasix to po.
PT evals =no skilled needs.
will drive him home at dc.
PLAN Home no anticipated needs
[2025-04-08 11:00] VITALS: BP 112/76
[2025-04-08] MEDS: NOVOLOG FLEXPEN-LOW RESISTANCE SC (11:14)
[2025-04-08] MEDS: COREG 12.5 MG PO ×2 (11:15→19:30)
[2025-04-08] MEDS: DIOVAN 320 MG PO (11:15)
[2025-04-08] MEDS: LASIX 80 MG PO (11:15)
[2025-04-08] MEDS: PROTONIX 40 MG PO (11:15)
[2025-04-08] MEDS: APRESOLINE 50 MG PO ×3 (11:15→21:15)
[2025-04-08] MEDS: HEPARIN 5000 UNITS SC ×2 (11:15→19:31)
[2025-04-08] MEDS: LOW STRENGTH ASPIRIN 81 MG PO (11:15)
[2025-04-08 11:52] LABS: Glucose - Point of Care 207 mg/dl (70-99)
--- NOTE | 2025-04-08 12:17 | W.PN.NEPH.PH ---
Today's Communication / Plan
-
Continue p.o. Lasix
Assessment/Plan
-
79-year-old male from his PCP office was sent to ER for evaluation of his progressive edema which started about 6 months ago to his feet but over the past month has progressed to the feet up bilateral legs to buttocks. He was seen by his PCP in the
office today who noted that he looked pale along with increased edema and referred him to the ER for evaluation. Patient states he had recent admission February 19 to at [facility] at that time he had uncontrolled hypertension he was placed on
4 blood pressure medications.
Renal consult for acute versus chronic kidney disease and anasarca . admission creatinine 2.1
Impression
Acute versus chronic kidney disease baseline (per records creatinine 1.4 2017 )admitting creatinine 2.1
Proteinuria 3+
hypertension
Anemia
DM 2 25+ years no diabetic retinopathy
neuropathy
cKd 3B
HLD
GERD,
diverticulitis status post colon resection
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
BPH
Plan
3+ albumin will quantify likely diabetic nephropathy,checked urine protein to creatinine ratio: 10 grams
10 g of proteinuria likely explains lower extremity edema
Continue 80mg daily
Pending workup with a Lexiscan
Creatinine stable at 2.0 and grossly nonoliguric ~3.
Serum albumin normal 3.7
Continue angiotensin receptor ramiro, amlodipine held in the setting of profound lower extremity edema, patient states he has been on amlodipine for years
Echocardiogram-diastolic dysfunction mild decrease in EF
Anemia likely from CKD = check paraprotein pending
Daily weights
Increased valsartan to 320 mg on 04/06/25
Checked renal ultrasound for level of chronicity: Notable for symmetrical kidney sizes no evidence of hydronephrosis no significant loss of corticomedullary differentiation
Checked serology although likely all diabetic nephropathy, check [id number]
-
-
Date of Service: April 08, 2025
CC / HPI / ROS
-
Chief Complaint:
CKD
Edema
History of Present Illness:
Creatinine stable at 2
0 mg IV twice daily of Lasix for congestive heart failure decompensation
Hemodynamically stable on escalated antihypertensives
Review of Systems:
Grossly nonoliguric
No fevers
No chest pain or shortness of breath
weights down
Labs
-
Labs:
WBC 4.6 10^3/uL (4.8-10.8) L 04/08/25 06:27
RBC 2.92 10^6/uL (4.70-6.10) L 04/08/25 06:27
Hgb 8.6 g/dL (13.0-18.0) L 04/08/25 06:27
Hct 25.4 % (39.0-52.0) L 04/08/25 06:27
Plt Count 127 10^3/uL (130-400) L 04/08/25 06:27
Sodium 138 mmol/L (135-145) 04/08/25 06:27
Potassium 4.2 mmol/L (3.5-5.1) 04/08/25 06:27
Chloride 112 mmol/L (98-107) H 04/08/25 06:27
Carbon Dioxide 20 mmol/L (22-30) L 04/08/25 06:27
BUN 42 mg/dl (9-20) H 04/08/25 06:27
Creatinine 2.3 mg/dL (0.7-1.3) H 04/08/25 06:27
eGFR 28.53 04/08/25 06:27
Glucose 196 mg/dl (70-99) H 04/08/25 06:27
Calcium 8.3 mg/dl (8.4-10.2) L 04/08/25 06:27
Veb-P-Qmovvjkgoms Pept 9580 pg/ml 04/04/25 17:18
Albumin 3.2 g/dl (3.5-5.0) L 04/08/25 06:27
Physical Exam
-
Vital Signs:
Vital Signs
Temp Pulse Resp BP Pulse Ox
97.7 F 81 18 165/75 98
04/08/25 07:20 04/08/25 11:15 04/08/25 07:20 04/08/25 11:15 04/08/25 07:20
Cardiovascular:: Regular rate and rhythm
Respiratory:: Bilateral: CTA
Lung Excursion:: Normal
Abdomen:: Nontender and Soft
Bowel Sounds:: Normal
Extremity Edema:: +1: Bilateral:
Sloan Catheter: No
[2025-04-08] MEDS: NOVOLOG FLEXPEN-LOW RESISTANCE 2 UNITS SC (12:45)
[2025-04-08 12:47] LABS: Glucose - Point of Care 193 mg/dl (70-99)
[2025-04-08 13:33] LABS: 24 Hour Urine Total Volume Random mL; Urine Collection Length Random hr
[2025-04-08] MEDS: FERRLECIT 110 MG IV (13:38)
--- NOTE | 2025-04-08 14:02 | W.PN.CD ---
Today's Communication / Plan
-
Lexiscan with no ischemia
Continue p.o. diuretics
Cardiology will sign off at this time. Please call with any additional questions or concerns.
Impression / Plan
-
I/P: 79M with hypertension, hypertriglyceridemia, type 2 diabetes mellitus, CKD with prior partial right nephrectomy (2006), diverticulitis status post colon resection, anemia of chronic disease, and incomplete right bundle branch block who
presented with worsening edema.
Outpatient Fashion Director Party Plan Sales: None
Heart failure, HFpEF acute, NEW, severe requiring hospitalization
- Patient with worsening symptoms of shortness of breath over the course of weeks to months. Bilateral lower extremity edema
- Echocardiogram 04/05/2025 low normal left ventricular function with estimate ejection fraction 50 to 55% small area of apical inferior/inferoseptal wall. Moderate tricuspid regurgitation
- Patient with CKD and nephrotic range proteinuria which is a significant contributing factor to his volume issues.
- Continue p.o. Lasix guided by nephrology
- Consider SGLT2/MRA as outpatient once KODI resolves
Coronary artery disease
- Gabbi 04/08/2025: Fixed apical defect consistent with infarction, no ischemia
- Continue aspirin and statin. LDL 67.
CKD Stage III, with proteinuria
- s/p partial right nephrectomy in the setting of mass 2006
- Creatinine 2.4 at [place] last month
- Nephrology following
Anemia
- Multiple factors including CKD may contribute.
- Treatment as directed by primary team and nephrology.
Hypertension, multidrug
- Amlodipine stopped, metoprolol tartrate stopped, carvedilol initiated this admission
- Continue valsartan and hydralazine
Type II DM, controlled, Hgba1c 6.4%
Incomplete right bundle branch block, chronic, seen in 2006
SUBJECTIVE: No CV complaints. Swelling dramatically improved.
Physical Exam
Vital Signs/Labs
Vital Signs
Temp Pulse Resp BP Pulse Ox
97.6 F 81 12 165/75 98
04/08/25 11:00 04/08/25 11:15 04/08/25 11:00 04/08/25 11:15 04/08/25 11:00
04/07/25 04/08/25 04/09/25
06:59 06:59 06:59
Actual Weight 140 lb 9 oz 139 lb 5 oz
04/08/25 06:27
04/08/25 06:27
Magnesium 1.8 mg/dl (1.6-2.3) 04/05/25 06:08
Triglycerides 152 mg/dl (10-149) H 04/05/25 06:08
LDL Cholesterol, Calc 67 mg/dl 04/05/25 06:08
VLDL Cholesterol, Calc 30 mg/dl (0-30) 04/05/25 06:08
HDL Cholesterol 48 mg/dl 04/05/25 06:08
04/04/25
17:18
Umx-X-Qiminrddscr Pept 9580
Physical Exam
Constitutional: No acute distress and Comfortable
Cardiovascular: Rhythm & rate is regular, Pedal edema present and Murmur/rub/gallop absent
Respiratory: Respiratory effort normal and Lungs clear to auscul.
Data Reviewed
-
Date of Service: April 08, 2025
Medical Decision Making: Reviewed Test Results, Independent Historian Assessment, Test Interpretation and Review of Case with other Provider
EKG: Tracing Personally Visualized and interpreted
Echo: Report Reviewed by me
X-Ray/CT/US/MRI/NUC/PET: Image Personally Visualized and interpreted and Report Reviewed by me
[2025-04-08 15:00] VITALS: BP 143/60
[2025-04-08 16:56] LABS: Glucose - Point of Care 281 mg/dl (70-99)
[2025-04-08] MEDS: NOVOLOG FLEXPEN-LOW RESISTANCE 3 UNITS SC (17:54)
[2025-04-08] MEDS: LIPITOR 10 MG PO (17:55)
[2025-04-08 20:05] VITALS: BP 158/76
[2025-04-08 21:15] LABS: Glucose - Point of Care 172 mg/dl (70-99)
[2025-04-08 23:49] VITALS: BP 130/76
[2025-04-09 03:13] VITALS: BP 157/70
[2025-04-09 04:58] VITALS: BMI 22.9
[2025-04-09 07:20] VITALS: BP 150/71
--- NOTE | 2025-04-09 07:22 | W.PN.HOSP.TC ---
Today's Communication/Plan
-
Continue p.o. Lasix per nephro
dc today
outpatient fu with nephro cardio and pcp
Assessment / Plan
Assessment / Plan
# Anasarca
# Nephrotic syndrome
Right lower extremity: Calcified vessel richards noted, but there are multiphasic waveforms from common femoral through popliteal artery with no velocity elevation to suggest any significant stenosis. Continuous Doppler waveforms at the dorsalis pedis
and posterior tibial arteries are monophasic, suggestive of infrapopliteal artery disease.
2Left lower extremity: Calcified vessel richards noted. Multiphasic waveforms from common femoral through popliteal artery with moderate atherosclerotic plaque and mild velocity elevations in the distal superficial femoral and popliteal arteries. The
velocity ratios are suggestive of less than 50% stenosis. Continuous Doppler waveforms at the dorsalis pedis and posterior tibial arteries are monophasic, suggestive of infrapopliteal artery disease.
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
SPEP, UPEP, CASIE pending
Edema improved with IV diuretics and ARB and now on Lasix 80 mg daily
Avoid nephrotoxins
#CKD 3B
Baseline creatinine of 2.0�2.4; today creatinine is 2.1; appears stable
Avoid nephrotoxins
Acute HFpEF
?? Cardiorenal syndrome vs infiltrative cardiomyopathy
Echo with EF of 55%, biatrial enlargement., Grade 2 diastology
Continue to monitor I's and O's
#Diabetic nephropathy
-PARDEEP Neg
-Awaiting other pending renal studies
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
-Troponin I 0.041-0.051, peaked at 0.073, 0.054.
-Lipids TGA- Elevated 409, N LDL- 67, VLDL 70
-Continue statin
Lexiscan with no ischemia
#Symptomatic normocytic anemia/ possible dilutional also
#History of iron deficiency anemia,
- S/p 2 unit PRBC
Iron surgery consistent with iron deficiency and anemia of chronic disease.
Continue with IV iron
Labs in the a.m.
Outpatient follow-up for additional workup and possible colonoscopy
insulin dependent diabetic mellitus
- HgbA1c 6.4
-Start glargine 10 units at bedtime
-Low resistance sliding scale
#HTN
Hydralazine 50mg, Carvedilol 1.25mg, Valsartan 320
#HLD
Continue Simvastatin
#GERD
Continue Protonix 40 mg daily
BPH
- Finasteride
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
DVT Prophylaxis
Heparin sc
Full code
Anticipated Discharge: 24 - 48 hours
Subjective/Interval History
-
Date of Service: April 09, 2025
Seen and examined at bedside. Offers no new complaints. AFVSS.
Objective Data
-
Labs:
Laboratory Results
04/09/25
07:04
WBC Pending
Hgb Pending
Hct Pending
Plt Count Pending
Sodium Pending
Potassium Pending
Chloride Pending
Carbon Dioxide Pending
BUN Pending
Creatinine Pending
Glucose Pending
Calcium Pending
Vital Signs:
Vital Signs
Temp Pulse Resp BP Pulse Ox
98.3 F 78 16 157/70 97
04/09/25 03:13 04/09/25 03:13 04/09/25 03:13 04/09/25 03:13 04/09/25 03:13
I&O
04/08/25 04/09/25 04/10/25
06:59 06:59 06:59
Intake Total 960 / 960 900 / 900
Output Total 1850 / 1850 1050 / 1050
Balance -890 / -890 -150 / -150
Review of Systems
-
History Source: Patient
Constitutional: Reports No Symptoms
Respiratory: Reports No Symptoms
Cardiac: Reports No Symptoms
Abdomen/GI: Reports No Symptoms
Genitourinary: Reports No Symptoms
Neuro: Reports No Symptoms
Physical Exam
-
General: Well Developed, Well Nourished and No Apparent Distress
HEENT: Normocephalic
Respiratory: Clear to Auscultation
Cardiac: Regular Rhythm and S1/S2
GI: Soft and Nontender
Musculoskeletal: Edema, Right Lower Extrem (1+ Edema at the foot) and Edema, Left Lower Extrem (Trace at ankle dorsum of foot)
Skin: Warm and Dry
Neuro: Awake, Alert and Oriented
Psych: Calm
Data Reviewed
-
Labs: Labs Reviewed by me, Discussed with Physician and Discussed with Patient
[2025-04-09 08:15] LABS: Hematocrit 24.3 % (39.0-52.0); Hemoglobin 8.3 g/dL (13.0-18.0); Mean Corp Hgb Conc. 34.2 g/dL (33.0-37.0); Mean Corpuscular Volume 86.5 fL (80.0-94.0); Platelet Count 124 10^3/uL (130-400); Red Cell Dist. Width 13.8 % (11.5-14.5)
[2025-04-09] MEDS: COREG 12.5 MG PO (08:20)
[2025-04-09] MEDS: DIOVAN 320 MG PO (08:20)
[2025-04-09] MEDS: APRESOLINE 50 MG PO (08:20)
[2025-04-09] MEDS: LOW STRENGTH ASPIRIN 81 MG PO (08:21)
[2025-04-09] MEDS: PROTONIX 40 MG PO (08:21)
[2025-04-09] MEDS: HEPARIN 5000 UNITS SC (08:21)
[2025-04-09] MEDS: LASIX 80 MG PO (08:21)
[2025-04-09 08:26] LABS: Glucose - Point of Care 146 mg/dl (70-99)
[2025-04-09] MEDS: NOVOLOG FLEXPEN-LOW RESISTANCE SC (08:26)
[2025-04-09 09:02] LABS: Blood Urea Nitrogen 45 mg/dl (9-20); Calcium 8.6 mg/dl (8.4-10.2); Carbon Dioxide 18 mmol/L (22-30); Chloride 112 mmol/L (98-107); Estimated Creatinine Clearance 26 ml/min; Glucose 150 mg/dl (70-99); Potassium 4.2 mmol/L (3.5-5.1); Sodium 137 mmol/L (135-145); eGFR 31.82
[2025-04-09 11:05] VITALS: BP 159/66
[2025-04-09 12:04] LABS: Glucose - Point of Care 273 mg/dl (70-99)
[2025-04-09] MEDS: NOVOLOG FLEXPEN-LOW RESISTANCE 3 UNITS SC (12:07)
--- NOTE | 2025-04-09 12:50 | W.PN.NEPH.PH ---
Today's Communication / Plan
-
Okay for discharge and follow-up with renal
Assessment/Plan
-
79-year-old male from his PCP office was sent to ER for evaluation of his progressive edema which started about 6 months ago to his feet but over the past month has progressed to the feet up bilateral legs to buttocks. He was seen by his PCP in the
office today who noted that he looked pale along with increased edema and referred him to the ER for evaluation. Patient states he had recent admission February 19 to at [facility] at that time he had uncontrolled hypertension he was placed on
4 blood pressure medications.
Renal consult for acute versus chronic kidney disease and anasarca . admission creatinine 2.1
Impression
Acute versus chronic kidney disease baseline (per records creatinine 1.4 2017 )admitting creatinine 2.1
Proteinuria 3+
hypertension
Anemia
DM 2 25+ years no diabetic retinopathy
neuropathy
cKd 3B
HLD
GERD,
diverticulitis status post colon resection
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
BPH
Plan
3+ albumin will quantify likely diabetic nephropathy,checked urine protein to creatinine ratio: 10 grams
10 g of proteinuria likely explains lower extremity edema
Continue 80mg daily
Pending workup with a Lexiscan
Creatinine stable at 2.0 and grossly nonoliguric ~3.
Serum albumin normal 3.7
Continue angiotensin receptor ramiro, amlodipine held in the setting of profound lower extremity edema, patient states he has been on amlodipine for years
Echocardiogram-diastolic dysfunction mild decrease in EF
Anemia likely from CKD = check paraprotein pending
Daily weights
Increased valsartan to 320 mg on 04/06/25
Checked renal ultrasound for level of chronicity: Notable for symmetrical kidney sizes no evidence of hydronephrosis no significant loss of corticomedullary differentiation
Checked serology although likely all diabetic nephropathy, check [id number]
Volume status is improved creatinine stable will be okay for discharge from my standpoint
-
-
Date of Service: April 09, 2025
CC / HPI / ROS
-
Chief Complaint:
CKD
Edema
History of Present Illness:
Creatinine stable at 2
0 mg IV twice daily of Lasix for congestive heart failure decompensation
Hemodynamically stable on escalated antihypertensives
Review of Systems:
Grossly nonoliguric
No fevers
No chest pain or shortness of breath
weights down
Labs
-
Labs:
WBC 5.3 10^3/uL (4.8-10.8) 04/09/25 07:04
RBC 2.81 10^6/uL (4.70-6.10) L 04/09/25 07:04
Hgb 8.3 g/dL (13.0-18.0) L 04/09/25 07:04
Hct 24.3 % (39.0-52.0) L 04/09/25 07:04
Plt Count 124 10^3/uL (130-400) L 04/09/25 07:04
Sodium 137 mmol/L (135-145) 04/09/25 07:04
Potassium 4.2 mmol/L (3.5-5.1) 04/09/25 07:04
Chloride 112 mmol/L (98-107) H 04/09/25 07:04
Carbon Dioxide 18 mmol/L (22-30) L 04/09/25 07:04
BUN 45 mg/dl (9-20) H 04/09/25 07:04
Creatinine 2.1 mg/dL (0.7-1.3) H 04/09/25 07:04
eGFR 31.82 04/09/25 07:04
Glucose 150 mg/dl (70-99) H 04/09/25 07:04
Calcium 8.6 mg/dl (8.4-10.2) 04/09/25 07:04
Mdw-K-Qgejqvcnyfo Pept 9580 pg/ml 04/04/25 17:18
Albumin 3.2 g/dl (3.5-5.0) L 04/08/25 06:27
Physical Exam
-
Vital Signs:
Vital Signs
Temp Pulse Resp BP Pulse Ox
97.6 F 86 18 159/66 99
04/09/25 11:05 04/09/25 11:05 04/09/25 11:05 04/09/25 11:05 04/09/25 11:05
Cardiovascular:: Regular rate and rhythm
Respiratory:: Bilateral: CTA
Lung Excursion:: Normal
Abdomen:: Nontender and Soft
Bowel Sounds:: Normal
Extremity Edema:: +1: Bilateral:
Sloan Catheter: No
--- NOTE | 2025-04-09 13:54 | CM ---
Patient chart reviewed
Discharge today
PLAN: Home, no needs
family to transport
--- NOTE | 2025-04-10 04:04 | W.DCSUMMARY ---
Discharge Summary
Discharge Data
Date of Admission: 04/04/25
Date of Discharge: 04/10/25
-
Pending Results: Yes
Hospital Course
Discharging Physician : Rosemary Saenz MD, Reed Strickland,
Disposition : Home
Primary care physician : Bailey Arndt
Principal Discharge diagnosis :
Nephrotic syndrome, Likely diabetic Nephropathy
HfpEF, type III cardiorenal syndrome
Infiltrative systemic disorders, Amyloidosis
Non-Insulin Dependent Diabetes Mellitus
Symptomatic Anemia, Iron deficiency anemia
Peripheral artery occlusive disease
Chronic Discharge diagnosis :
Essential hypertension,
Neuropathy
Chronic Kidney disease 3B
Dyslipidemia
Gastro-esophageal reflux disease,
Diverticulitis status post colon resection
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
BPH
Hospital Course :
79-year-old male presented to [facility] ED on 04/04/2025 due to progressive lower extremity edema extending to over the sacrum for approximately 6 months, which has worsened in the past month. He also endorsed exertional dyspnea and chest tightness.
Denied any recent associated fevers or chills. Denied knowledge of any weight gain. He was admitted to [facility] in February where he was treated for severe hypertension and anemia
He was admitted and was seen in consultation with cardiology and Nephrology.
Patient with anasarca, had 10 g protein output, was evaluated for Nephrotic syndrome. He had CKD 3b with a baseline Cr 2.0-2.4. Differentials included diabetic glomerular disease versus amyloid. Complement, PARDEEP and, HCV were negative. ANCA,
anti-DANI 2, SPEP/UPEP/CASIE are still pending. His edema improved resolved with IV lasix 80mg daily.
He is to follow-up serological studies with nephrology as OP.
He was also evaluated for HfpEF, differentials included type III cardiorenal syndrome versus infiltrative cardiomyopathy such as amyloid. Echo here with LVEF 55%, grade 2 diastology. He had a negative stress test and, echo showed some WMA likely a
previous HI. Currently on aspirin and statin. His current anti-hypertensive agents includes; Hydralazine 50mg tid, Carvedilol 12.5mg bid and, Valsartan 320mg, he is to follow-up with cardiology as OP
He had iron deficiency anemia, he was transfused with 2 unit PRBC. His home oral iron was transitioned to IV iron. He will need OP follow-up for colonoscopy when due.
He has a past medical history of NIDDM but was hypoglycemic on presentation and A1c 6.4%. This was thought to be due to worsening renal function and reduced insulin clearance. His home Lantus and aspart mealtime dose were held and was placed on Low
resistance insulin sliding scale with Accu-Cheks, BG goal is 140-180. He is to follow-up within 1 week at PCPs office.
Following resolution of his presenting symptoms, he was discharged to follow up on out patient basis with his primary care provider, Nephrology and, Cardiology
Important imaging findings :
US Perip Venous LOWER Ext 04/04/2025 No evidence of deep venous thrombosis of the left lower extremity
CXR- 04/04/2025 Pulmonary vascularity at least top normal. Suspected small bilateral pleural effusions.
Renal ultrasound. 04/05/2025 Left kidney overall to slightly larger in size than the right kidney, similar to prior study.
No evidence of renal collecting system dilatation bilaterally.
Suspected small bilateral pleural effusions.
ECHO 04/05/2025 1. Normal left ventricular size with low-normal systolic function. LVEF 50-55%.
2. Small area of hypokinesis in the apical inferior/inferoseptal wall.
3. Stage II diastolic dysfunction suggestive of abnormal relaxation and increased filling pressures.
4. Biatrial enlargement.
5. Moderate tricuspid regurgitation with moderately elevated PASP (51 mmHg).
6. There is evidence of pleural effusion.
7. No prior study available for comparison
Perip Arterial LOWER Ext 04/06/2025
1. Right lower extremity: Calcified vessel richards noted, but there are multiphasic waveforms from common femoral through popliteal artery with no velocity elevation to suggest any significant stenosis. Continuous Doppler waveforms at the dorsalis
pedis and posterior tibial arteries are monophasic, suggestive of infrapopliteal artery disease.
2. Left lower extremity: Calcified vessel richards noted. Multiphasic waveforms from common femoral through popliteal artery with moderate atherosclerotic plaque and mild velocity elevations in the distal superficial femoral and popliteal arteries. The
velocity ratios are suggestive of less than 50% stenosis. Continuous Doppler waveforms at the dorsalis pedis and posterior tibial arteries are monophasic, suggestive of infrapopliteal artery disease.
Nuclear lexiscan Stress Test 04/08/2025 Medium sized, predominantly fixed defect in the apical anterior/inferior segments as well as true apex, consistent with infarction.
Inconclusive ECG for ischemia given the pharmacological study.
Systolic function is mildly reduced. The ejection fraction is 46%.
Stress Risk is moderate risk study (1 - 3% HI or /year) due to pharmacologic agent used.
Discharge Plan
-
Patient Disposition: Home (Routine Discharge)
Discharge Diagnosis/Procedures: Anasarca, Nephrotic syndrome, Acute hfpef
Condition: Fair
Diet: Diabetic, Carb Controlled
Activity: As tolerated
Driving Restrictions: As prior to admission
Bathing Restrictions: None
Blood Work: BMP in 1 week
Referrals:
Tre Angel MD [Active, Cardiology] - in two to three weeks
Kobe Vela DO [Active, Nephrology] - in one to two weeks
Bailey Arndt DO [Family Provider, Internal Medicine] - in less than 1 week
Additional Discharge Medication Instructions: Take aspirin 81 mg 1 tablet by mouth daily
Take carvedilol 12.5 mg 1 tablet by mouth twice daily
Take furosemide 80 mg 1 tablet by mouth every day
Take hydralazine 50 mg tablet 1 tablet by mouth 3 times a day
Take valsartan 160 mg tablet 1 tablet by mouth daily
Please stop amlodipine,
Discontinue metoprolol
Please review changes made to your valsartan and hydralazine dose
Follow-up with outpatient nephrology and cardiology as recommended.
Follow-up with your family doctor within 1 week to review the new changes and additional refills.
If you develop any new symptoms or worsening of current symptoms please return to the emergency department.
Repeat BMP in 1 week with PCP
Prescriptions:
New
carvedilol 12.5 mg Tablet
12.5 mg PO BID Qty: 60 0RF
hydralazine 50 mg Tablet
50 mg PO TID Qty: 90 0RF
valsartan 160 mg Tablet
320 mg PO DAILY Qty: 30 0RF
furosemide 80 mg Tablet
80 mg PO DAILY Qty: 30 0RF
aspirin 81 mg Tablet,Chewable
81 mg PO DAILY Qty: 30 0RF
Continued
sertraline 100 mg Tablet
100 mg PO DAILY
tamsulosin [Flomax] 0.4 mg Capsule
0.4 mg PO HS
pantoprazole [Protonix] 40 mg Tablet,Delayed Release (Dr/Ec)
40 mg PO DAILY
simvastatin [Zocor] 20 mg Tablet
20 mg PO QPM
gabapentin 100 mg Capsule
100 mg PO TID
finasteride 5 mg Tablet
5 mg PO DAILY
Novolin R FlexPen 100 unit/mL (3 mL) Insulin Pen
10 sliding scale dose SC AC
insulin glargine [Lantus Solostar U-100 Insulin] 100 unit/mL (3 mL) Insulin Pen
30 unit SC HS
Discontinued
amlodipine [Norvasc] 10 mg Tablet
10 mg PO DAILY
hydralazine 50 mg Tablet
50 mg PO BID
valsartan 160 mg Tablet
160 mg PO DAILY
metoprolol tartrate 25 mg Tablet
25 mg PO BID
Discharge Orders:
Discharge Patient (As Directed); Ordered 04/09/25
Ordered By: Basil Kelley
Discharge Date and Time
Discharge Date/Time: 04/09/25 13:23
Print Language: DANISH
[2025-04-10 23:33] LABS: Serine Protease-3, IgG 0 AU/mL (0-19)
[2025-04-11 01:30] LABS: Phospholipase A2 Receptor, IgG <1:10 (<1:10)
[2025-04-12 22:12] LABS: Albumin 2.83 g/dL (3.75-5.01); SPEP IFE Reflex IFE Done; Total Protein-Electrophoresis 5.5 g/dL (6.3-8.2)
== END 2025-04-09 13:23 | disposition home or self-care (01) | DRG 698 ==
LOC: 4 EAST ACU 19:58
PROVIDERS: Clinical Nurse Specialist Family Health; Emergency Medicine; Nurse Practitioner Gerontology; Physician Assistant; Specialist; ADMITTING PHYSICIAN Internal Medicine; ATTENDING PHYSICIAN Internal Medicine; CONSULT PHYSICIAN Internal Medicine Nephrology; EMERGENCY PHYSICIAN Student in an Organized Health Care Education/Training Program; FAMILY PHYSICIAN Internal Medicine; OTHER PHYSICIAN Student in an Organized Health Care Education/Training Program
PROC: 30233N1 Transfusion of Nonautologous Red Blood Cells into Peripheral Vein, Percutaneous Approach (ICD-10-PCS; 2025-04-04)
PROC: 3E073KZ Introduction of Other Diagnostic Substance into Coronary Artery, Percutaneous Approach (ICD-10-PCS; 2025-04-08)
PROC: 4A02XM4 Measurement of Cardiac Total Activity, External Approach (ICD-10-PCS; 2025-04-08)
DX: E11.22 Type 2 diabetes mellitus with diabetic chronic kidney disease (principal); I50.31 Acute diastolic (congestive) heart failure; I13.0 Hypertensive heart and chronic kidney disease with heart failure and stage 1 through stage 4 chronic kidney disease, or unspecified chronic kidney disease; I5A Non-ischemic myocardial injury (non-traumatic); E87.20 Acidosis, unspecified; N17.9 Acute kidney failure, unspecified; D63.1 Anemia in chronic kidney disease; N18.32 Chronic kidney disease, stage 3b; E11.40 Type 2 diabetes mellitus with diabetic neuropathy, unspecified; E11.649 Type 2 diabetes mellitus with hypoglycemia without coma; E78.1 Pure hyperglyceridemia; N40.0 Benign prostatic hyperplasia without lower urinary tract symptoms; K21.9 Gastro-esophageal reflux disease without esophagitis; I07.1 Rheumatic tricuspid insufficiency; I25.10 Atherosclerotic heart disease of native coronary artery without angina pectoris; I25.2 Old myocardial infarction; Z79.4 Long term (current) use of insulin; Z79.899 Other long term (current) drug therapy; Z79.82 Long term (current) use of aspirin
CPT/HCPCS: 71046; 76775; 78452; 80048; 80053; 80061; 81003; 81015; 82570; 82607; 82728; 82746; 82784; 82962; 83036; 83516; 83520; 83540; 83550; 83735; 83880; 84155; 84156; 84165; 84484; 85025; 85027; 86038; 86160; 86255; 86334; 86335; 86850; 86900; 86901; 86920; 93005; 93017; 93306; 93925; 93971; 97162; 99291; A9500; J2785; J2916; P9016